=== PATIENT | female | born 1975 | race Caucasian/White ===

== ENCOUNTER 2017-08-20 12:46 | Inpatient (IN) ==
[2017-08-20] MEDS ORDERED: KETOROLAC 30 MG/1 ML VIAL IV STA (14:39)
[2017-08-20] MEDS ORDERED: SODIUM CHLORIDE 0.9% 1,000 ML IV STA (14:39)
[2017-08-20] MEDS ORDERED: ONDANSETRON ODT 4 MG TABLET PO STA (14:39)
[2017-08-20 15:58] LABS: Basophils # 0.1 10*3/uL (0.0-0.2); Basophils % 0.6 % (0.0-0.8); Eosinophils # 0.2 10*3/uL (0.0-0.87); Hemoglobin 11.4 GM/DL (12.0-16.0); Immature Granulocytes % 0.5 %; Immature Granulocytes Absolute 0.05 #; Lymphocytes # 1.3 10*3/uL (1.4-4.0); Lymphocytes % 12.9 % (21.3-54.2); Mean Corpuscular HGB Conc 32.6 GM/DL (32-36); Mean Corpuscular Hemoglobin 27 PG (27-34); Mean Corpuscular Volume 81.8 FL (87-102); Mean Platelet Volume 11.7 FL (9.6-12.0); Monocytes # 0.9 10*3/uL (0.11-0.8); Monocytes % 8.7 % (1.7-12.7); Neutrophils # 7.6 10*3/uL (1.4-7.4); Neutrophils % 75.3 % (38.7-73.9); Platelet Count 187 T/CUMM (130-400); Red Blood Count 4.28 MC/CUMM (3.8-5.5); Red Cell Distribution Width 13.6 % (9.3-17.3); White Blood Count 10.1 T/CUMM (4-12)
[2017-08-20] MEDS ORDERED: KETOROLAC 30 MG/1 ML VIAL ONE (16:12)
[2017-08-20] MEDS ORDERED: ONDANSETRON 4 MG/2 ML VIAL ONE (16:12)
[2017-08-20 16:31] LABS: Apearance,Urine CLOUDY (Clear); Bilirubin,Urine Negative (Negative); Blood, Urine Moderate mg/dL (Negative); Glucose,Urine (UA) Negative (Negative); Ketones,Urine Negative (Negative); Mucus,Urine Occasional /LPF (Occasional); Nitrite,Urine Positive (Negative); Protein,Urine 100 MG/DL; RBC,Urine 114 /HPF (0-4); Urine Color Amber (Yellow); Urine Specific Gravity 1.012 (1.001-1.035); WBC,Urine 1042 /HPF (0-6)
[2017-08-20 16:36] LABS: Platelet Estimate Normal
[2017-08-20] MEDS ORDERED: cefTRIAXone 1,000 MG in SODIUM CHLORIDE 0.9% 100 ML IV STA (16:39)
[2017-08-20] MEDS ORDERED: cefTRIAXone 1,000 MG VIAL ONE (16:48)
[2017-08-20 16:58] LABS: Albumin 3.7 G/DL (3.4-5.0); Bilirubin,Total 0.4 MG/DL (0.2-1.0); Calcium 8.6 MG/DL (8.5-10.1); Total Protein 6.8 G/DL (6.4-8.3)
[2017-08-20 16:59] LABS: Osmolality,Calculated 273.7 MOS/KG (273-304); Potassium 3.4 MMOL/L (3.5-5.1)
[2017-08-20] MEDS ORDERED: ZALEPLON 5 MG CAPSULE PO PRN (17:55)
[2017-08-20] MEDS ORDERED: ACETAMINOPHEN 325 MG TABLET PO PRN (17:55)
[2017-08-20] MEDS ORDERED: POTASSIUM CHLORIDE RIDER 10 MEQ in PREMIX 1 EACH IV PRN (18:49)
[2017-08-20] MEDS: SODIUM CHLORIDE 0.9% 1,000 ML IV SCH (20:43)
[2017-08-20] MEDS: DOCUSATE SODIUM 100 MG CAPSULE PO SCH (20:47)
[2017-08-20] MEDS: ENOXAPARIN 40 MG/0.4 ML SYRINGE SUBCUT SCH (20:47)
[2017-08-20] MEDS: traZODone 50 MG TABLET PO PRN (20:47)
[2017-08-20] MEDS: PIPERACILLIN/TAZOBACTAM 3,375 MG in SODIUM CHLORIDE 0.9% 100 ML IV SCH (20:48)
[2017-08-20] MEDS ORDERED: DEXTROSE 50% 25 GM/50 ML VIAL IV PRN (21:32)
[2017-08-20] MEDS ORDERED: GLUCAGON 1 MG VIAL IM PRN (21:32)
[2017-08-21] MEDS: ONDANSETRON 4 MG/2 ML VIAL IV PRN ×3 (04:21→20:59)
[2017-08-21] MEDS: PIPERACILLIN/TAZOBACTAM 3,375 MG in SODIUM CHLORIDE 0.9% 100 ML IV SCH ×3 (04:22→20:58)
[2017-08-21 04:35] LABS: Basophils % 0.5 % (0.0-0.8); Eosinophils # 0.3 10*3/uL (0.0-0.87); Eosinophils % 3.7 % (0.00-10.9); Hematocrit 32.4 VOL% (35.7-47.0); Hemoglobin 10.6 GM/DL (12.0-16.0); Immature Granulocytes % 0.4 %; Immature Granulocytes Absolute 0.03 #; Lymphocytes % 13.4 % (21.3-54.2); Mean Corpuscular HGB Conc 32.7 GM/DL (32-36); Mean Corpuscular Hemoglobin 27 PG (27-34); Mean Corpuscular Volume 82.2 FL (87-102); Mean Platelet Volume 11.2 FL (9.6-12.0); Monocytes # 0.7 10*3/uL (0.11-0.8); Monocytes % 9.1 % (1.7-12.7); Neutrophils # 5.4 10*3/uL (1.4-7.4); Neutrophils % 72.9 % (38.7-73.9); Platelet Count 209 T/CUMM (130-400); Red Blood Count 3.94 MC/CUMM (3.8-5.5); Red Cell Distribution Width 13.4 % (9.3-17.3); White Blood Count 7.3 T/CUMM (4-12)
[2017-08-21 05:06] LABS: Alanine Aminotransferase 19 U/L (13-56); Albumin 2.8 G/DL (3.4-5.0); Alkaline Phosphatase 95 U/L (45-117); Aspartate Amino Transferase 29 U/L (0-37); Bilirubin,Total < 0.39 MG/DL (0.2-1.0); Blood Urea Nitrogen 15 MG/DL (7-18); Calcium 8.1 MG/DL (8.5-10.1); Glucose 121 MG/DL (74-106); Osmolality,Calculated 282.3 MOS/KG (273-304); Potassium 3.6 MMOL/L (3.5-5.1); Sodium 141 MMOL/L (136-145); Total Protein 6.2 G/DL (6.4-8.3)
[2017-08-21] MEDS: SODIUM CHLORIDE 0.9% 1,000 ML IV SCH ×2 (05:18→11:30)
[2017-08-21 05:36] LABS: Risk Ratio 5.04; VLDL CHOLESTEROL 44.4 MG/DL
[2017-08-21] MEDS: PANTOPRAZOLE 40 MG TABLET PO SCH (09:18)
[2017-08-21] MEDS: DOCUSATE SODIUM 100 MG CAPSULE PO SCH ×2 (09:18→20:58)
[2017-08-21] MEDS: INSULIN REGULAR 100 UNIT/ML SUBCUT SCH ×4 (09:19→20:59)
[2017-08-21] MEDS: MORPHINE 4 MG/1 ML VIAL IV PRN (20:58)
[2017-08-21] MEDS: ENOXAPARIN 40 MG/0.4 ML SYRINGE SUBCUT SCH (20:58)
[2017-08-21] MEDS: traZODone 50 MG TABLET PO PRN (23:47)
[2017-08-22] MEDS: SODIUM CHLORIDE 0.9% 1,000 ML IV SCH ×3 (02:00→13:07)
[2017-08-22] MEDS: MORPHINE 4 MG/1 ML VIAL IV PRN ×2 (02:39→20:24)
[2017-08-22] MEDS: ONDANSETRON 4 MG/2 ML VIAL IV PRN ×4 (02:40→18:45)
[2017-08-22] MEDS: PIPERACILLIN/TAZOBACTAM 3,375 MG in SODIUM CHLORIDE 0.9% 100 ML IV SCH ×3 (04:37→20:26)
[2017-08-22 05:11] LABS: Basophils % 0.5 % (0.0-0.8); Eosinophils # 0.3 10*3/uL (0.0-0.87); Eosinophils % 4.7 % (0.00-10.9); Hematocrit 31.7 VOL% (35.7-47.0); Hemoglobin 10.5 GM/DL (12.0-16.0); Immature Granulocytes % 0.7 %; Immature Granulocytes Absolute 0.04 #; Lymphocytes # 1.9 10*3/uL (1.4-4.0); Lymphocytes % 31.9 % (21.3-54.2); Mean Corpuscular HGB Conc 33.1 GM/DL (32-36); Mean Corpuscular Hemoglobin 27 PG (27-34); Mean Corpuscular Volume 80.7 FL (87-102); Mean Platelet Volume 12.6 FL (9.6-12.0); Monocytes # 0.5 10*3/uL (0.11-0.8); Monocytes % 8.6 % (1.7-12.7); Neutrophils # 3.1 10*3/uL (1.4-7.4); Neutrophils % 53.6 % (38.7-73.9); Platelet Count 93 T/CUMM (130-400); Red Blood Count 3.93 MC/CUMM (3.8-5.5); Red Cell Distribution Width 13.6 % (9.3-17.3); White Blood Count 5.8 T/CUMM (4-12)
[2017-08-22 05:35] LABS: Calcium 8.1 MG/DL (8.5-10.1); Osmolality,Calculated 286.8 MOS/KG (273-304); Potassium 3.8 MMOL/L (3.5-5.1)
[2017-08-22] MEDS: INSULIN REGULAR 100 UNIT/ML SUBCUT SCH ×4 (08:29→23:04)
[2017-08-22] MEDS: PANTOPRAZOLE 40 MG TABLET PO SCH (08:29)
[2017-08-22] MEDS: DOCUSATE SODIUM 100 MG CAPSULE PO SCH ×2 (08:30→20:26)
[2017-08-22] MEDS: ENOXAPARIN 40 MG/0.4 ML SYRINGE SUBCUT SCH (20:26)
[2017-08-23] MEDS: SODIUM CHLORIDE 0.9% 1,000 ML IV SCH ×2 (04:44→10:52)
[2017-08-23] MEDS: PIPERACILLIN/TAZOBACTAM 3,375 MG in SODIUM CHLORIDE 0.9% 100 ML IV SCH (04:44)
[2017-08-23] MEDS: INSULIN REGULAR 100 UNIT/ML SUBCUT SCH ×2 (08:55→12:37)
[2017-08-23] MEDS: DOCUSATE SODIUM 100 MG CAPSULE PO SCH (08:56)
[2017-08-23] MEDS: PANTOPRAZOLE 40 MG TABLET PO SCH (08:56)
[2017-08-23] MEDS: ONDANSETRON 4 MG/2 ML VIAL IV PRN (09:21)
[2017-08-23] MEDS: MORPHINE 4 MG/1 ML VIAL IV PRN (11:22)
[2017-08-23 12:01] VITALS: BP 144/88
== END 2017-08-23 12:38 | disposition home or self-care (01) | DRG 690 ==
LOC: N.ED 12:46 → SUATTDRO 17:53 → N.EDINP 17:53 → N.2E 18:25
PROVIDERS: ADMIT Internal Medicine; ATTEND Family Medicine

== ENCOUNTER 2017-09-09 09:49 | Inpatient (IN) ==
[2017-09-09] MEDS ORDERED: SODIUM CHLORIDE 0.9% 1,000 ML IV STA (10:13)
[2017-09-09] MEDS ORDERED: ONDANSETRON 4 MG/2 ML VIAL IV STA (10:13)
[2017-09-09 11:16] LABS: Apearance,Urine Slightly Hazy (Clear); Bacteria,Urine Occasional /HPF (Few); Bilirubin,Urine Negative (Negative); Blood, Urine Negative (Negative); Glucose,Urine (UA) Negative (Negative); Granular Casts,Urine 2 /LPF (0-1); Hyaline Casts,Urine 16 /LPF (0-3); Ketones,Urine Negative (Negative); Mucus,Urine Occasional /LPF (Occasional); Nitrite,Urine Negative (Negative); Protein,Urine 30 MG/DL; RBC,Urine <1 /HPF (0-4); Squamous Epithelial Cell,Urine Few /HPF (0-10); Urine Color Yellow (Yellow); Urine Specific Gravity 1.028 (1.001-1.035); Urine Urobilinogen < 2.0 EU/DL (0.2-1.0); WBC,Urine 29 /HPF (0-6)
[2017-09-09 11:22] LABS: Basophils % 0.4 % (0.0-0.8); Eosinophils # 0.1 10*3/uL (0.0-0.87); Eosinophils % 0.9 % (0.00-10.9); Hematocrit 42.6 VOL% (35.7-47.0); Hemoglobin 14.2 GM/DL (12.0-16.0); Immature Granulocytes % 0.4 %; Immature Granulocytes Absolute 0.04 #; Lymphocytes # 2.1 10*3/uL (1.4-4.0); Lymphocytes % 20.7 % (21.3-54.2); Mean Corpuscular HGB Conc 33.3 GM/DL (32-36); Mean Corpuscular Hemoglobin 26 PG (27-34); Mean Platelet Volume 11.4 FL (9.6-12.0); Monocytes # 0.8 10*3/uL (0.11-0.8); Monocytes % 8.5 % (1.7-12.7); Neutrophils # 6.9 10*3/uL (1.4-7.4); Neutrophils % 69.1 % (38.7-73.9); Platelet Count 342 T/CUMM (130-400); Red Blood Count 5.46 MC/CUMM (3.8-5.5); Red Cell Distribution Width 14.2 % (9.3-17.3); White Blood Count 9.9 T/CUMM (4-12)
[2017-09-09 11:45] LABS: Alanine Aminotransferase 15 U/L (13-56); Albumin 2.8 G/DL (3.4-5.0); Alkaline Phosphatase 83 U/L (45-117); Aspartate Amino Transferase 23 U/L (0-37); Bilirubin,Total < 0.39 MG/DL (0.2-1.0); Blood Urea Nitrogen 24 MG/DL (7-18); Calcium 8.3 MG/DL (8.5-10.1); Glucose 124 MG/DL (74-106); Osmolality,Calculated 279.7 MOS/KG (273-304); Sodium 138 MMOL/L (136-145); Total Protein 6.1 G/DL (6.4-8.3)
[2017-09-09 11:47] LABS: Potassium 2.4 MMOL/L (3.5-5.1)
[2017-09-09] MEDS ORDERED: POTASSIUM CHLORIDE RIDER 100 ML IV ONE (11:52)
[2017-09-09] MEDS: POTASSIUM CHLORIDE RIDER 10 MEQ in PREMIX 1 EACH IV SCH ×2 (12:04→14:15)
[2017-09-09] MEDS ORDERED: MORPHINE 4 MG/1 ML VIAL IM STA (12:15)
[2017-09-09] MEDS ORDERED: MORPHINE 4 MG/1 ML VIAL IV STA (12:25)
[2017-09-09] MEDS ORDERED: ACETAMINOPHEN 325 MG TABLET PO PRN (15:01)
[2017-09-09] MEDS ORDERED: POTASSIUM CHLORIDE 20 MEQ/15 ML UDCUP PER TUBE PRN (15:25)
[2017-09-09] MEDS ORDERED: PANTOPRAZOLE 40 MG TABLET PO SCH (15:30)
[2017-09-09] MEDS ORDERED: GLUCAGON 1 MG VIAL IM PRN (16:16)
[2017-09-09] MEDS ORDERED: DEXTROSE 50% 25 GM/50 ML VIAL IV PRN (16:16)
[2017-09-09] MEDS: POTASSIUM CHLORIDE RIDER 10 MEQ in PREMIX 1 EACH IV PRN ×3 (16:20→22:50)
[2017-09-09] MEDS: ONDANSETRON 4 MG/2 ML VIAL IV PRN ×2 (16:21→20:23)
[2017-09-09] MEDS: INSULIN LISPRO 100 UNIT/ML SUBCUT SCH ×2 (16:53→21:08)
[2017-09-09] MEDS: MORPHINE 4 MG/1 ML VIAL IV PRN ×2 (18:34→22:39)
[2017-09-09] MEDS: SODIUM CHLORIDE 0.9% 1,000 ML IV SCH (20:23)
[2017-09-10 05:09] LABS: Basophils % 0.5 % (0.0-0.8); Eosinophils # 0.3 10*3/uL (0.0-0.87); Eosinophils % 3.4 % (0.00-10.9); Hematocrit 36.1 VOL% (35.7-47.0); Hemoglobin 11.9 GM/DL (12.0-16.0); Immature Granulocytes % 0.6 %; Immature Granulocytes Absolute 0.05 #; Lymphocytes # 3.2 10*3/uL (1.4-4.0); Lymphocytes % 37.5 % (21.3-54.2); Mean Corpuscular Hemoglobin 26 PG (27-34); Mean Corpuscular Volume 80.2 FL (87-102); Mean Platelet Volume 12.2 FL (9.6-12.0); Monocytes # 0.8 10*3/uL (0.11-0.8); Monocytes % 9.8 % (1.7-12.7); Neutrophils # 4.1 10*3/uL (1.4-7.4); Neutrophils % 48.2 % (38.7-73.9); Platelet Count 282 T/CUMM (130-400); Red Cell Distribution Width 14.1 % (9.3-17.3); White Blood Count 8.6 T/CUMM (4-12)
[2017-09-10 05:27] LABS: Calcium 7.6 MG/DL (8.5-10.1); Osmolality,Calculated 282.3 MOS/KG (273-304); Risk Ratio 5.9; Thyroid Stimulating Hormone 2.07 uIU/ml (0.358-3.74); VLDL CHOLESTEROL 42.2 MG/DL
[2017-09-10] MEDS: SODIUM CHLORIDE 0.9% 1,000 ML IV SCH ×4 (06:19→23:28)
[2017-09-10] MEDS: MORPHINE 4 MG/1 ML VIAL IV PRN ×4 (06:25→20:32)
[2017-09-10] MEDS: ONDANSETRON 4 MG/2 ML VIAL IV PRN ×4 (06:26→20:33)
[2017-09-10] MEDS: INSULIN LISPRO 100 UNIT/ML SUBCUT SCH ×4 (07:44→20:31)
[2017-09-10] MEDS: methylPREDNISolone SOD SUC 40 MG/1 ML VIAL IV SCH ×3 (09:08→20:34)
[2017-09-10] MEDS: PANTOPRAZOLE 40 MG TABLET PO SCH ×2 (09:08→20:35)
[2017-09-10] MEDS: POTASSIUM CHLORIDE 20 MEQ TABLET PO PRN ×4 (09:08→14:32)
[2017-09-10] MEDS: MESALAMINE 250 MG CAPSULE PO SCH ×4 (09:08→20:35)
[2017-09-11] MEDS: methylPREDNISolone SOD SUC 40 MG/1 ML VIAL IV SCH ×4 (01:02→21:40)
[2017-09-11] MEDS: MORPHINE 4 MG/1 ML VIAL IV PRN ×5 (01:03→23:15)
[2017-09-11] MEDS: ONDANSETRON 4 MG/2 ML VIAL IV PRN ×6 (01:03→22:50)
[2017-09-11 05:58] LABS: Basophils % 0.1 % (0.0-0.8); Hematocrit 34.2 VOL% (35.7-47.0); Hemoglobin 11.1 GM/DL (12.0-16.0); Immature Granulocytes % 0.6 %; Immature Granulocytes Absolute 0.08 #; Lymphocytes # 1.2 10*3/uL (1.4-4.0); Lymphocytes % 8.1 % (21.3-54.2); Mean Corpuscular HGB Conc 32.5 GM/DL (32-36); Mean Corpuscular Hemoglobin 26 PG (27-34); Mean Corpuscular Volume 79.9 FL (87-102); Mean Platelet Volume 12.2 FL (9.6-12.0); Monocytes # 0.2 10*3/uL (0.11-0.8); Monocytes % 1.3 % (1.7-12.7); Neutrophils % 89.9 % (38.7-73.9); Platelet Count 247 T/CUMM (130-400); Red Blood Count 4.28 MC/CUMM (3.8-5.5); Red Cell Distribution Width 14.1 % (9.3-17.3); White Blood Count 14.4 T/CUMM (4-12)
[2017-09-11 06:27] LABS: Calcium 8.2 MG/DL (8.5-10.1); Osmolality,Calculated 288.1 MOS/KG (273-304); Potassium 4.2 MMOL/L (3.5-5.1)
[2017-09-11] MEDS: INSULIN LISPRO 100 UNIT/ML SUBCUT SCH ×4 (08:33→21:40)
[2017-09-11] MEDS: SODIUM CHLORIDE 0.9% 1,000 ML IV SCH ×3 (08:34→16:36)
[2017-09-11] MEDS: MESALAMINE 250 MG CAPSULE PO SCH ×4 (09:31→21:40)
[2017-09-11] MEDS: PANTOPRAZOLE 40 MG TABLET PO SCH ×2 (09:31→21:40)
[2017-09-12] MEDS: SODIUM CHLORIDE 0.9% 1,000 ML IV SCH ×3 (00:56→18:38)
[2017-09-12] MEDS: methylPREDNISolone SOD SUC 40 MG/1 ML VIAL IV SCH ×4 (00:57→21:35)
[2017-09-12 06:38] LABS: Basophils % 0.2 % (0.0-0.8); Eosinophils % 0.1 % (0.00-10.9); Hematocrit 34.2 VOL% (35.7-47.0); Hemoglobin 10.7 GM/DL (12.0-16.0); Immature Granulocytes % 0.9 %; Immature Granulocytes Absolute 0.17 #; Lymphocytes # 1.9 10*3/uL (1.4-4.0); Mean Corpuscular HGB Conc 31.3 GM/DL (32-36); Mean Corpuscular Hemoglobin 26 PG (27-34); Mean Corpuscular Volume 83.2 FL (87-102); Mean Platelet Volume 12.6 FL (9.6-12.0); Monocytes # 0.5 10*3/uL (0.11-0.8); Monocytes % 2.6 % (1.7-12.7); Neutrophils # 16.1 10*3/uL (1.4-7.4); Neutrophils % 86.2 % (38.7-73.9); Platelet Count 314 T/CUMM (130-400); Red Blood Count 4.11 MC/CUMM (3.8-5.5); Red Cell Distribution Width 14.5 % (9.3-17.3); White Blood Count 18.7 T/CUMM (4-12)
[2017-09-12 07:05] LABS: Calcium 7.5 MG/DL (8.5-10.1); Osmolality,Calculated 287.8 MOS/KG (273-304); Potassium 3.9 MMOL/L (3.5-5.1)
[2017-09-12] MEDS: ONDANSETRON 4 MG/2 ML VIAL IV PRN ×3 (08:39→16:04)
[2017-09-12] MEDS: PANTOPRAZOLE 40 MG TABLET PO SCH ×2 (08:46→21:35)
[2017-09-12] MEDS: BISACODYL 5 MG TABLET PO SCH ×2 (08:46→14:30)
[2017-09-12] MEDS: MESALAMINE 250 MG CAPSULE PO SCH ×4 (08:46→21:35)
[2017-09-12] MEDS: INSULIN LISPRO 100 UNIT/ML SUBCUT SCH ×4 (09:56→22:02)
[2017-09-12] MEDS: MORPHINE 4 MG/1 ML VIAL IV PRN (16:04)
[2017-09-12] MEDS ORDERED: POLYETHYLENE GLYCOL POWDER 255 GM BOTTLE PO ONE (18:00)
[2017-09-12] MEDS ORDERED: MAGNESIUM CITRATE 300 ML BOTTLE PO ONE (21:00)
[2017-09-13] MEDS: BISACODYL 5 MG TABLET PO SCH (00:27)
[2017-09-13] MEDS: SODIUM CHLORIDE 0.9% 1,000 ML IV SCH ×4 (02:44→23:05)
[2017-09-13] MEDS: methylPREDNISolone SOD SUC 40 MG/1 ML VIAL IV SCH ×2 (02:45→15:17)
[2017-09-13] MEDS ORDERED: MIDAZOLAM 2 MG/2 ML VIAL ONE (07:36)
[2017-09-13] MEDS ORDERED: ONDANSETRON 4 MG/2 ML VIAL ONE (07:37)
[2017-09-13] MEDS ORDERED: PROPOFOL 200 MG/20 ML VIAL IV ONE (09:00)
[2017-09-13] MEDS ORDERED: LIDOCAINE 2% 5 ML VIAL ONE (09:00)
[2017-09-13] MEDS: INSULIN LISPRO 100 UNIT/ML SUBCUT SCH ×4 (10:24→20:59)
[2017-09-13] MEDS: PANTOPRAZOLE 40 MG TABLET PO SCH ×2 (10:25→20:59)
[2017-09-13] MEDS: predniSONE 20 MG TABLET PO SCH (10:25)
[2017-09-13] MEDS: ONDANSETRON 4 MG/2 ML VIAL IV PRN ×4 (10:27→23:58)
[2017-09-13] MEDS: MESALAMINE 250 MG CAPSULE PO SCH ×4 (10:32→20:59)
[2017-09-13] MEDS: MORPHINE 4 MG/1 ML VIAL IV PRN ×2 (10:39→18:02)
[2017-09-13] MEDS ORDERED: LEVOFLOXACIN INJ 750 MG in PREMIX 1 EACH IV SCH (17:00)
[2017-09-14] MEDS: MORPHINE 4 MG/1 ML VIAL IV PRN ×2 (00:02→06:01)
[2017-09-14] MEDS: ONDANSETRON 4 MG/2 ML VIAL IV PRN (05:58)
[2017-09-14] MEDS: SODIUM CHLORIDE 0.9% 1,000 ML IV SCH ×2 (06:50→13:45)
[2017-09-14 07:37] LABS: Basophils % 0.1 % (0.0-0.8); Eosinophils % 0.2 % (0.00-10.9); Hematocrit 34.2 VOL% (35.7-47.0); Hemoglobin 11.1 GM/DL (12.0-16.0); Immature Granulocytes % 2.6 %; Immature Granulocytes Absolute 0.28 #; Lymphocytes # 2.2 10*3/uL (1.4-4.0); Lymphocytes % 20.3 % (21.3-54.2); Mean Corpuscular HGB Conc 32.5 GM/DL (32-36); Mean Corpuscular Hemoglobin 26 PG (27-34); Mean Corpuscular Volume 79.7 FL (87-102); Mean Platelet Volume 11.6 FL (9.6-12.0); Monocytes # 0.4 10*3/uL (0.11-0.8); Monocytes % 3.5 % (1.7-12.7); Neutrophils % 73.3 % (38.7-73.9); Platelet Count 268 T/CUMM (130-400); Red Blood Count 4.29 MC/CUMM (3.8-5.5); Red Cell Distribution Width 14.4 % (9.3-17.3); White Blood Count 10.9 T/CUMM (4-12)
[2017-09-14] MEDS: INSULIN LISPRO 100 UNIT/ML SUBCUT SCH ×2 (09:06→12:52)
[2017-09-14] MEDS: MESALAMINE 250 MG CAPSULE PO SCH ×2 (09:07→13:17)
[2017-09-14] MEDS: predniSONE 20 MG TABLET PO SCH (09:07)
[2017-09-14] MEDS: PANTOPRAZOLE 40 MG TABLET PO SCH (09:37)
[2017-09-14 12:16] VITALS: BP 188/109
== END 2017-09-14 14:08 | disposition home or self-care (01) | DRG 386 ==
LOC: N.ED 09:49 → N.EDINP 12:07 → N.2E 12:56
PROVIDERS: ADMIT Internal Medicine; ATTEND Internal Medicine
PROC: COLONBX (2017-09-13 08:35)

== ENCOUNTER 2018-03-17 16:13 | Inpatient (IN) ==
[2018-03-17] MEDS ORDERED: PANTOPRAZOLE 40 MG VIAL IV STA (17:07)
[2018-03-17] MEDS ORDERED: SODIUM CHLORIDE 0.9% 1,000 ML IV STA (17:07)
[2018-03-17] MEDS ORDERED: ONDANSETRON 4 MG/2 ML VIAL IV STA (17:07)
[2018-03-17] MEDS ORDERED: KETOROLAC 30 MG/1 ML VIAL IV STA (17:07)
[2018-03-17 18:17] LABS: Basophils # 0.1 10*3/uL (0.0-0.2); Basophils % 0.8 % (0.0-0.8); Eosinophils # 0.1 10*3/uL (0.0-0.87); Eosinophils % 1.4 % (0.00-10.9); Hematocrit 35.3 VOL% (35.7-47.0); Hemoglobin 11.5 GM/DL (12.0-16.0); Immature Granulocytes % 0.6 %; Immature Granulocytes Absolute 0.05 #; Lymphocytes # 2.1 10*3/uL (1.4-4.0); Lymphocytes % 23.5 % (21.3-54.2); Mean Corpuscular HGB Conc 32.6 GM/DL (32-36); Mean Corpuscular Hemoglobin 25 PG (27-34); Mean Corpuscular Volume 75.8 FL (87-102); Mean Platelet Volume 10.2 FL (9.6-12.0); Monocytes # 0.8 10*3/uL (0.11-0.8); Monocytes % 8.7 % (1.7-12.7); Neutrophils # 5.9 10*3/uL (1.4-7.4); Platelet Count 269 T/CUMM (130-400); Red Blood Count 4.66 MC/CUMM (3.8-5.5); Red Cell Distribution Width 13.2 % (9.3-17.3); White Blood Count 9.1 T/CUMM (4-12)
[2018-03-17 18:54] LABS: Hypochromasia 1+; Microcytosis 1+; Platelet Estimate Adequate
[2018-03-17 19:02] LABS: Apearance,Urine CLEAR (Clear); Bacteria,Urine Occasional /HPF (Few); Bilirubin,Urine Negative (Negative); Blood, Urine Negative (Negative); Glucose,Urine (UA) Negative (Negative); Ketones,Urine Negative (Negative); Mucus,Urine Occasional /LPF (Occasional); Nitrite,Urine Negative (Negative); Protein,Urine Negative; RBC,Urine 1 /HPF (0-4); Squamous Epithelial Cell,Urine Occasional /HPF (0-10); Urine Color Yellow (Yellow); Urine Specific Gravity 1.017 (1.001-1.035); Urine Urobilinogen < 2.0 EU/DL (0.2-1.0); WBC,Urine 4 /HPF (0-6)
[2018-03-17 19:03] LABS: Alanine Aminotransferase 14 U/L (13-56); Albumin 3.5 G/DL (3.4-5.0); Alkaline Phosphatase 90 U/L (45-117); Aspartate Amino Transferase 21 U/L (0-37); Bilirubin,Total < 0.39 MG/DL (0.2-1.0); Blood Urea Nitrogen 17 MG/DL (7-18); Calcium 8.6 MG/DL (8.5-10.1); Glucose 84 MG/DL (74-106); Osmolality,Calculated 273.8 MOS/KG (273-304); Potassium 3.3 MMOL/L (3.5-5.1); Sodium 137 MMOL/L (136-145)
[2018-03-17] MEDS ORDERED: POTASSIUM CHLORIDE 20 MEQ TABLET PO STA (19:23)
[2018-03-17] MEDS ORDERED: MAGNESIUM SULF RIDER 2 GM in PREMIX 1 EACH IV STA (19:23)
[2018-03-17 19:31] LABS: Lactic Acid 1.4 MMOL/L (0.4-2.0)
[2018-03-17 19:43] LABS: Barbiturates Screen,Urine Negative (Negative); Benzodiazepines Screen,Urine Negative (Negative); Cannabinoid Screen,Urine Negative (Negative); Opiate Screen,Urine Negative (Negative); Phencyclidine Screen,Urine Negative (Negative)
[2018-03-17] MEDS ORDERED: ACETAMINOPHEN 325 MG TABLET PO PRN (20:07)
[2018-03-17] MEDS ORDERED: POTASSIUM CHLORIDE 10 MEQ TABLET PO ONE (20:11)
[2018-03-17] MEDS ORDERED: NON-FORMULARY MEDICATION (Trazodone Hcl [Trazodone Hcl] 200 MG) PO SCH (21:00)
[2018-03-17] MEDS: SODIUM CHLORIDE 0.9% 1,000 ML IV SCH (21:21)
[2018-03-17] MEDS ORDERED: INFLUENZA VIRUS VACCINE 0.5 ML SYRINGE IM ONE (21:21)
[2018-03-17] MEDS ORDERED: cefTRIAXone 1,000 MG in SYRINGE 1 EACH IV SCH (21:30)
[2018-03-17] MEDS ORDERED: metroNIDAZOLE 500 MG TABLET PO SCH (21:30)
[2018-03-17] MEDS: ESCITALOPRAM 10 MG TABLET PO SCH (21:38)
[2018-03-17] MEDS: CIPROFLOXACIN 500 MG TABLET PO SCH (21:38)
[2018-03-17] MEDS: GABAPENTIN 300 MG CAPSULE PO SCH (21:38)
[2018-03-17] MEDS: ONDANSETRON 4 MG/2 ML VIAL IV PRN (21:49)
[2018-03-17] MEDS: MORPHINE 4 MG/1 ML VIAL IV PRN (21:50)
[2018-03-18] MEDS: ONDANSETRON 4 MG/2 ML VIAL IV PRN ×4 (03:51→23:32)
[2018-03-18] MEDS: MORPHINE 4 MG/1 ML VIAL IV PRN ×5 (03:52→23:32)
[2018-03-18 04:24] LABS: Basophils # 0.1 10*3/uL (0.0-0.2); Basophils % 0.8 % (0.0-0.8); Eosinophils # 0.1 10*3/uL (0.0-0.87); Hematocrit 29.5 VOL% (35.7-47.0); Hemoglobin 9.3 GM/DL (12.0-16.0); Immature Granulocytes % 0.6 %; Immature Granulocytes Absolute 0.04 #; Lymphocytes # 1.9 10*3/uL (1.4-4.0); Lymphocytes % 28.7 % (21.3-54.2); Mean Corpuscular HGB Conc 31.5 GM/DL (32-36); Mean Corpuscular Hemoglobin 24 PG (27-34); Mean Corpuscular Volume 77.2 FL (87-102); Mean Platelet Volume 10.3 FL (9.6-12.0); Monocytes # 0.5 10*3/uL (0.11-0.8); Monocytes % 7.8 % (1.7-12.7); Neutrophils # 3.9 10*3/uL (1.4-7.4); Neutrophils % 60.1 % (38.7-73.9); Platelet Count 268 T/CUMM (130-400); Red Blood Count 3.82 MC/CUMM (3.8-5.5); Red Cell Distribution Width 13.2 % (9.3-17.3); White Blood Count 6.5 T/CUMM (4-12)
[2018-03-18] MEDS: CIPROFLOXACIN 500 MG TABLET PO SCH ×2 (09:06→20:39)
[2018-03-18] MEDS: metroNIDAZOLE 500 MG TABLET PO SCH ×3 (09:06→20:39)
[2018-03-18] MEDS: buPROPion SR 100 MG TABLET PO SCH (09:06)
[2018-03-18] MEDS: GABAPENTIN 300 MG CAPSULE PO SCH ×3 (09:06→20:39)
[2018-03-18] MEDS: predniSONE 20 MG TABLET PO SCH (09:07)
[2018-03-18] MEDS: MESALAMINE 250 MG CAPSULE PO SCH ×4 (10:22→20:40)
[2018-03-18] MEDS: SODIUM CHLORIDE 0.9% 1,000 ML IV SCH ×2 (13:34→21:27)
[2018-03-18] MEDS: traZODone 50 MG TABLET PO SCH (20:39)
[2018-03-18] MEDS: ESCITALOPRAM 10 MG TABLET PO SCH (20:39)
[2018-03-19] MEDS: MORPHINE 4 MG/1 ML VIAL IV PRN ×4 (04:11→19:42)
[2018-03-19] MEDS: ONDANSETRON 4 MG/2 ML VIAL IV PRN ×4 (04:15→19:43)
[2018-03-19 05:54] LABS: Basophils % 0.5 % (0.0-0.8); Eosinophils # 0.1 10*3/uL (0.0-0.87); Hemoglobin 8.9 GM/DL (12.0-16.0); Immature Granulocytes % 0.5 %; Immature Granulocytes Absolute 0.04 #; Lymphocytes # 1.6 10*3/uL (1.4-4.0); Lymphocytes % 20.4 % (21.3-54.2); Mean Corpuscular HGB Conc 30.7 GM/DL (32-36); Mean Corpuscular Hemoglobin 24 PG (27-34); Mean Corpuscular Volume 78.6 FL (87-102); Mean Platelet Volume 10.8 FL (9.6-12.0); Monocytes # 0.4 10*3/uL (0.11-0.8); Monocytes % 5.2 % (1.7-12.7); Neutrophils # 5.7 10*3/uL (1.4-7.4); Neutrophils % 72.4 % (38.7-73.9); Platelet Count 265 T/CUMM (130-400); Red Blood Count 3.69 MC/CUMM (3.8-5.5); Red Cell Distribution Width 13.3 % (9.3-17.3); White Blood Count 7.8 T/CUMM (4-12)
[2018-03-19 06:18] LABS: Calcium 7.6 MG/DL (8.5-10.1); Osmolality,Calculated 289.6 MOS/KG (273-304); Potassium 3.8 MMOL/L (3.5-5.1)
[2018-03-19] MEDS: metroNIDAZOLE 500 MG TABLET PO SCH ×3 (09:40→20:53)
[2018-03-19] MEDS: CIPROFLOXACIN 500 MG TABLET PO SCH ×2 (09:41→20:53)
[2018-03-19] MEDS: GABAPENTIN 300 MG CAPSULE PO SCH ×3 (09:41→20:53)
[2018-03-19] MEDS: buPROPion SR 100 MG TABLET PO SCH (09:41)
[2018-03-19] MEDS: predniSONE 20 MG TABLET PO SCH (09:41)
[2018-03-19] MEDS: MESALAMINE 250 MG CAPSULE PO SCH ×4 (09:42→20:51)
[2018-03-19] MEDS: SODIUM CHLORIDE 0.9% 1,000 ML IV SCH ×2 (14:44→22:48)
[2018-03-19] MEDS: ESCITALOPRAM 10 MG TABLET PO SCH (20:53)
[2018-03-19] MEDS: traZODone 50 MG TABLET PO SCH (20:53)
[2018-03-20] MEDS: MORPHINE 4 MG/1 ML VIAL IV PRN ×6 (00:06→22:40)
[2018-03-20] MEDS: ONDANSETRON 4 MG/2 ML VIAL IV PRN ×5 (00:07→19:12)
[2018-03-20] MEDS: SODIUM CHLORIDE 0.9% 1,000 ML IV SCH ×3 (05:18→21:07)
[2018-03-20] MEDS: predniSONE 20 MG TABLET PO SCH (09:50)
[2018-03-20] MEDS: CIPROFLOXACIN 500 MG TABLET PO SCH ×2 (09:50→22:42)
[2018-03-20] MEDS: buPROPion SR 100 MG TABLET PO SCH (09:50)
[2018-03-20] MEDS: MESALAMINE 250 MG CAPSULE PO SCH ×4 (09:50→22:41)
[2018-03-20] MEDS: GABAPENTIN 300 MG CAPSULE PO SCH ×3 (09:50→22:42)
[2018-03-20] MEDS: metroNIDAZOLE 500 MG TABLET PO SCH ×3 (09:50→22:41)
[2018-03-20] MEDS ORDERED: POLYETHYLENE GLYCOL POWDER 255 GM BOTTLE PO ONE (17:01)
[2018-03-20] MEDS: traZODone 50 MG TABLET PO SCH (22:41)
[2018-03-20] MEDS: ESCITALOPRAM 10 MG TABLET PO SCH (22:42)
[2018-03-21] MEDS ORDERED: POLYETHYLENE GLYCOL POWDER 255 GM BOTTLE PO ONE (03:00)
[2018-03-21] MEDS: MORPHINE 4 MG/1 ML VIAL IV PRN ×5 (03:21→21:56)
[2018-03-21] MEDS: ONDANSETRON 4 MG/2 ML VIAL IV PRN ×5 (03:21→21:56)
[2018-03-21] MEDS: SODIUM CHLORIDE 0.9% 1,000 ML IV SCH (05:14)
[2018-03-21 05:42] LABS: Basophils % 0.3 % (0.0-0.8); Hematocrit 30.4 VOL% (35.7-47.0); Hemoglobin 9.5 GM/DL (12.0-16.0); Immature Granulocytes Absolute 0.47 #; Lymphocytes # 1.4 10*3/uL (1.4-4.0); Lymphocytes % 12.3 % (21.3-54.2); Mean Corpuscular HGB Conc 31.3 GM/DL (32-36); Mean Corpuscular Hemoglobin 25 PG (27-34); Mean Corpuscular Volume 78.4 FL (87-102); Mean Platelet Volume 10.5 FL (9.6-12.0); Monocytes # 0.5 10*3/uL (0.11-0.8); Monocytes % 4.6 % (1.7-12.7); Neutrophils # 9.2 10*3/uL (1.4-7.4); Neutrophils % 78.8 % (38.7-73.9); Platelet Count 313 T/CUMM (130-400); Red Blood Count 3.88 MC/CUMM (3.8-5.5); Red Cell Distribution Width 13.5 % (9.3-17.3); White Blood Count 11.6 T/CUMM (4-12)
[2018-03-21 06:00] LABS: Alanine Aminotransferase 12 U/L (13-56); Albumin 2.7 G/DL (3.4-5.0); Alkaline Phosphatase 69 U/L (45-117); Aspartate Amino Transferase 13 U/L (0-37); Bilirubin,Total < 0.39 MG/DL (0.2-1.0); Blood Urea Nitrogen 11 MG/DL (7-18); Calcium 7.4 MG/DL (8.5-10.1); Glucose 199 MG/DL (74-106); Osmolality,Calculated 290.8 MOS/KG (273-304); Potassium 3.3 MMOL/L (3.5-5.1); Sodium 144 MMOL/L (136-145)
[2018-03-21 06:27] LABS: Ferritin 117.4 ng/ml (8-252)
[2018-03-21] MEDS ORDERED: POTASSIUM CHLORIDE 20 MEQ TABLET PO PRN (07:14)
[2018-03-21] MEDS: predniSONE 20 MG TABLET PO SCH ×2 (08:33→09:57)
[2018-03-21] MEDS: GABAPENTIN 300 MG CAPSULE PO SCH ×4 (08:33→21:55)
[2018-03-21] MEDS: MESALAMINE 250 MG CAPSULE PO SCH ×5 (08:33→22:14)
[2018-03-21] MEDS: metroNIDAZOLE 500 MG TABLET PO SCH ×4 (08:33→21:55)
[2018-03-21] MEDS: buPROPion SR 100 MG TABLET PO SCH ×2 (08:33→09:57)
[2018-03-21] MEDS: CIPROFLOXACIN 500 MG TABLET PO SCH ×3 (08:34→21:55)
[2018-03-21] MEDS ORDERED: POTASSIUM CHLORIDE RIDER 10 MEQ in PREMIX 1 EACH IV PRN (08:54)
[2018-03-21] MEDS ORDERED: MAGNESIUM SULF RIDER 2 GM in PREMIX 1 EACH IV ONE ×2 (09:00→14:00)
[2018-03-21] MEDS: POTASSIUM CHLORIDE RIDER 20 MEQ in PREMIX 1 EACH IV PRN ×3 (10:25→22:15)
[2018-03-21] MEDS ORDERED: MAGNESIUM SULF RIDER 4 GM in PREMIX 1 EACH IV PRN (12:15)
[2018-03-21] MEDS ORDERED: MAGNESIUM SULF RIDER 2 GM in PREMIX 1 EACH IV PRN (12:15)
[2018-03-21] MEDS ORDERED: SODIUM CHLORIDE 0.9% 1,000 ML IV SCH (12:30)
[2018-03-21] MEDS ORDERED: CYANOCOBALAMIN 1000 MCG/1 ML VIAL IM ONE (13:30)
[2018-03-21] MEDS: traZODone 50 MG TABLET PO SCH (21:55)
[2018-03-21] MEDS: ESCITALOPRAM 10 MG TABLET PO SCH (21:56)
[2018-03-21] MEDS: MAGNESIUM CHLORIDE 64 MG TABLET PO SCH (21:56)
[2018-03-21] MEDS: MULTIVITAMIN (CENTRUM) TABLET PO SCH (21:56)
[2018-03-21] MEDS: POTASSIUM CHLORIDE 20 MEQ/15 ML UDCUP PO SCH (21:57)
[2018-03-22 01:34] LABS: Basophils % 0.2 % (0.0-0.8); Eosinophils % 0.1 % (0.00-10.9); Hemoglobin 9.8 GM/DL (12.0-16.0); Immature Granulocytes % 3.5 %; Immature Granulocytes Absolute 0.45 #; Lymphocytes # 1.7 10*3/uL (1.4-4.0); Lymphocytes % 13.4 % (21.3-54.2); Mean Corpuscular HGB Conc 31.6 GM/DL (32-36); Mean Corpuscular Hemoglobin 24 PG (27-34); Mean Corpuscular Volume 77.3 FL (87-102); Monocytes # 0.4 10*3/uL (0.11-0.8); Neutrophils # 10.3 10*3/uL (1.4-7.4); Neutrophils % 79.8 % (38.7-73.9); Platelet Count 330 T/CUMM (130-400); Red Blood Count 4.01 MC/CUMM (3.8-5.5); Red Cell Distribution Width 13.6 % (9.3-17.3); White Blood Count 12.9 T/CUMM (4-12)
[2018-03-22 02:05] LABS: Alanine Aminotransferase 13 U/L (13-56); Albumin 2.7 G/DL (3.4-5.0); Alkaline Phosphatase 73 U/L (45-117); Aspartate Amino Transferase 14 U/L (0-37); Bilirubin,Total < 0.39 MG/DL (0.2-1.0); Blood Urea Nitrogen 12 MG/DL (7-18); Calcium 7.8 MG/DL (8.5-10.1); Glucose 200 MG/DL (74-106); Potassium 3.8 MMOL/L (3.5-5.1); Sodium 143 MMOL/L (136-145); Total Protein 6.1 G/DL (6.4-8.3)
[2018-03-22] MEDS: ONDANSETRON 4 MG/2 ML VIAL IV PRN ×2 (02:10→08:05)
[2018-03-22] MEDS: MORPHINE 4 MG/1 ML VIAL IV PRN ×2 (02:10→08:04)
[2018-03-22] MEDS ORDERED: predniSONE 20 MG TABLET PO SCH (09:00)
[2018-03-22] MEDS: MAGNESIUM CHLORIDE 64 MG TABLET PO SCH (09:51)
[2018-03-22] MEDS: POTASSIUM CHLORIDE 20 MEQ/15 ML UDCUP PO SCH (09:51)
[2018-03-22] MEDS: metroNIDAZOLE 500 MG TABLET PO SCH (09:52)
[2018-03-22] MEDS: GABAPENTIN 300 MG CAPSULE PO SCH (09:52)
[2018-03-22] MEDS: buPROPion SR 100 MG TABLET PO SCH (09:52)
[2018-03-22] MEDS: CIPROFLOXACIN 500 MG TABLET PO SCH (09:52)
[2018-03-22] MEDS: MULTIVITAMIN (CENTRUM) TABLET PO SCH (09:52)
[2018-03-22 11:52] VITALS: BP 160/84
[2018-03-22 13:31] LABS: Myeloperoxidase Antibody < 0.2 U
[2018-03-22 20:17] LABS: Saccharomyces cerevisiae IgA 66.3 U
[2018-03-22 20:35] LABS: Saccharomyces cerevisiae, IgG 25.3 U
== END 2018-03-22 11:45 | disposition home or self-care (01) | DRG 386 ==
LOC: N.ED 16:13 → N.EDINP 16:13 → SUATTDRO 20:07 → N.2E 21:04 → SUATTDRO 03-18 15:07
PROVIDERS: ADMIT Internal Medicine; ATTEND Internal Medicine

== ENCOUNTER 2018-08-02 15:29 | Inpatient (IN) ==
[2018-08-02] MEDS ORDERED: PANTOPRAZOLE 40 MG VIAL IV STA (19:50)
[2018-08-02] MEDS ORDERED: SODIUM CHLORIDE 0.9% 1,000 ML IV STA (19:50)
[2018-08-02] MEDS ORDERED: ONDANSETRON 4 MG/2 ML VIAL IV STA (19:50)
[2018-08-02] MEDS ORDERED: methylPREDNISolone SOD SUC 125 MG/2 ML VIAL IV STA (19:50)
[2018-08-02] MEDS ORDERED: metroNIDAZOLE INJ 500 MG in PREMIX 1 EACH IV STA (19:50)
[2018-08-02] MEDS ORDERED: DICYCLOMINE 20 MG/2 ML AMP IM ONE (19:50)
[2018-08-02] MEDS ORDERED: fentaNYL 100 MCG/2 ML VIAL IV STA (19:54)
[2018-08-02 21:30] LABS: Basophils # 0.1 10*3/uL (0.0-0.2); Basophils % 0.8 % (0.0-0.8); Eosinophils # 0.3 10*3/uL (0.0-0.87); Eosinophils % 3.1 % (0.00-10.9); Hematocrit 34.5 VOL% (35.7-47.0); Hemoglobin 10.9 GM/DL (12.0-16.0); Immature Granulocytes Absolute 0.09 #; Lymphocytes # 2.7 10*3/uL (1.4-4.0); Lymphocytes % 29.8 % (21.3-54.2); Mean Corpuscular HGB Conc 31.6 GM/DL (32-36); Mean Corpuscular Volume 79.1 FL (87-102); Mean Platelet Volume 10.6 FL (9.6-12.0); Monocytes % 7.2 % (1.7-12.7); Neutrophils % 58.1 % (38.7-73.9); Platelet Count 253 T/CUMM (130-400); Red Blood Count 4.36 MC/CUMM (3.8-5.5); Red Cell Distribution Width 14.7 % (9.3-17.3); White Blood Count 9.2 T/CUMM (4-12)
[2018-08-02 21:44] LABS: INR 0.9; PT Patient Result 10.1 SECS; Partial Thromboplastin Time 23.8 SECS (0-40)
[2018-08-02 21:56] LABS: Alanine Aminotransferase 42 U/L (13-56); Albumin 3.6 G/DL (3.4-5.0); Alkaline Phosphatase 84 U/L (45-117); Amylase 74 U/L (25-115); Aspartate Amino Transferase 41 U/L (0-37); Blood Urea Nitrogen 24 MG/DL (7-18); CKMB % 3.9 %; Calcium 9.1 MG/DL (8.5-10.1); Glucose 145 MG/DL (74-106); Osmolality,Calculated 281.7 MOS/KG (273-304); Total Protein 7.3 G/DL (6.4-8.3); Troponin I < 0.015 NG/ML (0.00-0.045)
[2018-08-03 01:00] LABS: Risk Ratio 7.65; VLDL CHOLESTEROL 99.4 MG/DL
[2018-08-03] MEDS: MORPHINE 4 MG/1 ML VIAL IV PRN ×2 (01:49→09:11)
[2018-08-03] MEDS: ONDANSETRON 4 MG/2 ML VIAL IV PRN ×5 (01:51→22:10)
[2018-08-03] MEDS: POTASSIUM CHLORIDE RIDER 10 MEQ in PREMIX 1 EACH IV SCH ×3 (01:55→05:46)
[2018-08-03 05:22] LABS: Basophils % 0.4 % (0.0-0.8); Eosinophils % 0.2 % (0.00-10.9); Hematocrit 33.3 VOL% (35.7-47.0); Hemoglobin 10.3 GM/DL (12.0-16.0); Immature Granulocytes Absolute 0.09 #; Lymphocytes # 1.2 10*3/uL (1.4-4.0); Lymphocytes % 13.8 % (21.3-54.2); Mean Corpuscular HGB Conc 30.9 GM/DL (32-36); Mean Corpuscular Volume 81.6 FL (87-102); Mean Platelet Volume 11.9 FL (9.6-12.0); Monocytes % 1.2 % (1.7-12.7); Neutrophils % 83.4 % (38.7-73.9); Platelet Count 178 T/CUMM (130-400); Red Blood Count 4.08 MC/CUMM (3.8-5.5); Red Cell Distribution Width 14.8 % (9.3-17.3); White Blood Count 8.9 T/CUMM (4-12)
[2018-08-03] MEDS ORDERED: POTASSIUM CHLORIDE RIDER 10 MEQ in PREMIX 1 EACH IV SCH (06:00)
[2018-08-03 06:15] LABS: Alanine Aminotransferase 36 U/L (13-56); Albumin 3.1 G/DL (3.4-5.0); Alkaline Phosphatase 76 U/L (45-117); Aspartate Amino Transferase 43 U/L (0-37); Bilirubin,Total < 0.39 MG/DL (0.2-1.0); Blood Urea Nitrogen 24 MG/DL (7-18); Calcium 7.6 MG/DL (8.5-10.1); Glucose 264 MG/DL (74-106); Total Protein 6.4 G/DL (6.4-8.3)
[2018-08-03 06:31] LABS: Anisocytosis 1+; Lymphocytes 16 % (20-55); Platelet Estimate Adequate; Segmented Neutrophils 84 % (50-85); Total Cells Counted 100
[2018-08-03] MEDS: CIPROFLOXACIN INJ 400 MG in PREMIX 1 EACH IV SCH ×2 (07:54→20:16)
[2018-08-03] MEDS: metroNIDAZOLE INJ 500 MG in PREMIX 1 EACH IV SCH ×2 (09:10→16:50)
[2018-08-03] MEDS: GABAPENTIN 300 MG CAPSULE PO SCH ×3 (09:12→20:25)
[2018-08-03] MEDS: buPROPion SR 100 MG TABLET PO SCH (09:12)
[2018-08-03] MEDS: hydroCHLOROthiazide 25 MG TABLET PO SCH (09:12)
[2018-08-03] MEDS: PANTOPRAZOLE 40 MG TABLET PO SCH (09:12)
[2018-08-03] MEDS: predniSONE 20 MG TABLET PO SCH (09:12)
[2018-08-03] MEDS: HYDROmorphone 2 MG/1 ML VIAL IV PRN ×3 (14:29→22:07)
[2018-08-03] MEDS: traZODone 50 MG TABLET PO SCH ×2 (20:21→20:24)
[2018-08-03] MEDS: ESCITALOPRAM 10 MG TABLET PO SCH (20:21)
[2018-08-04] MEDS: metroNIDAZOLE INJ 500 MG in PREMIX 1 EACH IV SCH (00:20)
[2018-08-04] MEDS: HYDROmorphone 2 MG/1 ML VIAL IV PRN ×6 (02:18→22:50)
[2018-08-04] MEDS: ONDANSETRON 4 MG/2 ML VIAL IV PRN ×6 (03:22→22:52)
[2018-08-04 05:34] LABS: Basophils % 0.3 % (0.0-0.8); Eosinophils # 0.1 10*3/uL (0.0-0.87); Eosinophils % 0.4 % (0.00-10.9); Hematocrit 31.3 VOL% (35.7-47.0); Hemoglobin 9.7 GM/DL (12.0-16.0); Immature Granulocytes % 1.8 %; Immature Granulocytes Absolute 0.22 #; Lymphocytes # 2.3 10*3/uL (1.4-4.0); Lymphocytes % 18.7 % (21.3-54.2); Mean Corpuscular Volume 81.3 FL (87-102); Mean Platelet Volume 10.6 FL (9.6-12.0); Neutrophils % 72.8 % (38.7-73.9); Platelet Count 237 T/CUMM (130-400); Red Blood Count 3.85 MC/CUMM (3.8-5.5); Red Cell Distribution Width 15.3 % (9.3-17.3); White Blood Count 12.4 T/CUMM (4-12)
[2018-08-04] MEDS: CIPROFLOXACIN 500 MG TABLET PO SCH ×2 (08:49→21:14)
[2018-08-04] MEDS: predniSONE 20 MG TABLET PO SCH (08:49)
[2018-08-04] MEDS: PANTOPRAZOLE 40 MG TABLET PO SCH (08:49)
[2018-08-04] MEDS: hydroCHLOROthiazide 25 MG TABLET PO SCH (08:49)
[2018-08-04] MEDS: GABAPENTIN 300 MG CAPSULE PO SCH ×3 (08:49→21:12)
[2018-08-04] MEDS: buPROPion SR 100 MG TABLET PO SCH (08:49)
[2018-08-04] MEDS: metroNIDAZOLE 500 MG TABLET PO SCH ×2 (14:40→21:11)
[2018-08-04] MEDS: traZODone 50 MG TABLET PO SCH (21:11)
[2018-08-04] MEDS: ESCITALOPRAM 10 MG TABLET PO SCH (21:12)
[2018-08-05] MEDS: HYDROmorphone 2 MG/1 ML VIAL IV PRN ×2 (03:47→07:33)
[2018-08-05] MEDS: ONDANSETRON 4 MG/2 ML VIAL IV PRN ×2 (03:50→07:36)
[2018-08-05] MEDS: metroNIDAZOLE 500 MG TABLET PO SCH (06:10)
[2018-08-05] MEDS: predniSONE 20 MG TABLET PO SCH (08:04)
[2018-08-05] MEDS: buPROPion SR 100 MG TABLET PO SCH (08:04)
[2018-08-05] MEDS: GABAPENTIN 300 MG CAPSULE PO SCH (08:04)
[2018-08-05] MEDS: hydroCHLOROthiazide 25 MG TABLET PO SCH (08:04)
[2018-08-05] MEDS: CIPROFLOXACIN 500 MG TABLET PO SCH (08:04)
[2018-08-05] MEDS: PANTOPRAZOLE 40 MG TABLET PO SCH (08:04)
[2018-08-05] MEDS ORDERED: ONDANSETRON 4 MG TABLET PO PRN (09:58)
[2018-08-05] MEDS ORDERED: traMADol 50 MG TABLET PO PRN (10:00)
[2018-08-05 11:12] VITALS: BP 129/73
== END 2018-08-05 12:47 | disposition home or self-care (01) | DRG 386 ==
LOC: N.ED 15:29 → N.EDINP 08-03 00:04 → N.5E 08-03 00:58
PROVIDERS: ADMIT Hospitalist; ATTEND Hospitalist

== ENCOUNTER 2018-08-15 15:52 | Inpatient (IN) ==
[2018-08-15] MEDS ORDERED: SODIUM CHLORIDE 0.9% 1,000 ML IV STA ×2 (18:41→22:59)
[2018-08-15] MEDS ORDERED: ONDANSETRON 4 MG/2 ML VIAL IV STA (18:41)
[2018-08-15 19:51] LABS: Basophils # 0.1 10*3/uL (0.0-0.2); Basophils % 0.3 % (0.0-0.8); Eosinophils % 0.2 % (0.00-10.9); Hematocrit 43.3 VOL% (35.7-47.0); Hemoglobin 13.7 GM/DL (12.0-16.0); Immature Granulocytes % 1.2 %; Immature Granulocytes Absolute 0.23 #; Lymphocytes # 3.4 10*3/uL (1.4-4.0); Lymphocytes % 18.3 % (21.3-54.2); Mean Corpuscular HGB Conc 31.6 GM/DL (32-36); Mean Corpuscular Volume 81.2 FL (87-102); Mean Platelet Volume 11.7 FL (9.6-12.0); Monocytes % 4.6 % (1.7-12.7); Neutrophils % 75.4 % (38.7-73.9); Platelet Count 284 T/CUMM (130-400); Red Blood Count 5.33 MC/CUMM (3.8-5.5); Red Cell Distribution Width 16.2 % (9.3-17.3); White Blood Count 18.6 T/CUMM (4-12)
[2018-08-15 19:57] LABS: Apearance,Urine CLEAR (Clear); Bilirubin,Urine Negative (Negative); Blood, Urine Small mg/dL (Negative); Glucose,Urine (UA) >=500 mg/dL (Negative); Ketones,Urine Negative (Negative); Mucus,Urine Occasional /LPF (Occasional); Nitrite,Urine Negative (Negative); Protein,Urine 100 MG/DL; RBC,Urine 2 /HPF (0-4); Squamous Epithelial Cell,Urine Occasional /HPF (0-10); Urine Color Straw (Yellow); Urine Specific Gravity 1.028 (1.001-1.035); Urine Urobilinogen < 2.0 EU/DL (0.2-1.0); WBC,Urine 2 /HPF (0-6)
[2018-08-15] MEDS ORDERED: MORPHINE 4 MG/1 ML VIAL IV STA (20:22)
[2018-08-15 20:23] LABS: RBC Wet Mount None Seen /HPF; WBC Wet Mount None Seen /HPF
[2018-08-15 20:24] LABS: Bacteria Wet Mount Rare /HPF; Clue Cells None Seen /HPF (None Seen); Epithelial Cell Wet Mount None Seen /HPF (Few/HPF); Trichomonas Wet Mount None Seen /HPF (None Seen); Yeast Wet Mount None Seen /HPF (None Seen)
[2018-08-15 20:25] LABS: Albumin 3.9 G/DL (3.4-5.0); Bilirubin,Total 1.3 MG/DL (0.2-1.0); Calcium 9.6 MG/DL (8.5-10.1); Osmolality,Calculated 292.5 MOS/KG (273-304); Total Protein 7.8 G/DL (6.4-8.3)
[2018-08-15] MEDS ORDERED: methylPREDNISolone SOD SUC 125 MG/2 ML VIAL IV STA (21:01)
[2018-08-15] MEDS ORDERED: diphenhydrAMINE 50 MG/1 ML VIAL IV STA (21:01)
[2018-08-15] MEDS ORDERED: FAMOTIDINE 20 MG/2 ML VIAL IV STA (21:01)
[2018-08-15] MEDS ORDERED: INSULIN REGULAR 100 UNIT/ML IV STA (22:59)
[2018-08-15] MEDS ORDERED: hydrALAZINE 20 MG/1 ML VIAL IV STA (22:59)
[2018-08-16] MEDS ORDERED: GLUCAGON 1 MG VIAL IM PRN (01:30)
[2018-08-16] MEDS ORDERED: DEXTROSE 50% 25 GM/50 ML SYRINGE IV PRN (01:30)
[2018-08-16] MEDS ORDERED: ONDANSETRON 4 MG/2 ML VIAL IV PRN (01:36)
[2018-08-16] MEDS ORDERED: ACETAMINOPHEN 325 MG TABLET PO PRN ×2 (01:36→15:25)
[2018-08-16] MEDS ORDERED: NICOTINE 21 MG/24 HR PATCH TRANSDERM PRN (01:36)
[2018-08-16] MEDS ORDERED: diphenhydrAMINE CAP 25 MG CAPSULE PO PRN (01:36)
[2018-08-16] MEDS ORDERED: SODIUM CHLORIDE 0.9% 1,000 ML IV SCH (02:00)
[2018-08-16] MEDS ORDERED: MORPHINE 4 MG/1 ML VIAL IV PRN (03:13)
[2018-08-16] MEDS: ONDANSETRON 4 MG/2 ML VIAL IV PRN ×3 (03:31→17:20)
[2018-08-16] MEDS: SODIUM CHLORIDE 0.9% 1,000 ML IV SCH ×3 (03:32→20:53)
[2018-08-16] MEDS: MORPHINE 4 MG/1 ML VIAL IV PRN ×3 (03:32→12:40)
[2018-08-16 04:33] LABS: Basophils % 0.2 % (0.0-0.8); Hematocrit 38.9 VOL% (35.7-47.0); Hemoglobin 12.2 GM/DL (12.0-16.0); Immature Granulocytes % 1.6 %; Immature Granulocytes Absolute 0.23 #; Lymphocytes # 1.4 10*3/uL (1.4-4.0); Lymphocytes % 9.9 % (21.3-54.2); Mean Corpuscular HGB Conc 31.4 GM/DL (32-36); Mean Platelet Volume 11.6 FL (9.6-12.0); Monocytes % 0.9 % (1.7-12.7); Neutrophils % 87.4 % (38.7-73.9); Platelet Count 256 T/CUMM (130-400); Red Cell Distribution Width 16.2 % (9.3-17.3); White Blood Count 14.3 T/CUMM (4-12)
[2018-08-16 05:07] LABS: Albumin 3.5 G/DL (3.4-5.0); Bilirubin,Total 1.3 MG/DL (0.2-1.0); Calcium 8.4 MG/DL (8.5-10.1); Osmolality,Calculated 292.7 MOS/KG (273-304); Total Protein 6.9 G/DL (6.4-8.3)
[2018-08-16] MEDS ORDERED: INSULIN LISPRO 100 UNIT/ML SUBCUT SCH (08:00)
[2018-08-16] MEDS: methylPREDNISolone SOD SUC 40 MG/1 ML VIAL IV SCH ×2 (08:42→21:01)
[2018-08-16] MEDS: GABAPENTIN 300 MG CAPSULE PO SCH ×3 (08:42→20:54)
[2018-08-16] MEDS: hydroCHLOROthiazide 25 MG TABLET PO SCH (08:42)
[2018-08-16] MEDS: buPROPion SR 100 MG TABLET PO SCH (08:42)
[2018-08-16] MEDS: PANTOPRAZOLE 40 MG TABLET PO SCH (15:35)
[2018-08-16] MEDS: FLUCONAZOLE 200 MG TABLET PO SCH (17:20)
[2018-08-16] MEDS: INSULIN NPH 100 UNIT/ML SUBCUT SCH (17:20)
[2018-08-16 22:42] LABS: Calcium 8.1 MG/DL (8.5-10.1)
[2018-08-16] MEDS: INSULIN LISPRO 100 UNIT/ML SUBCUT SCH (22:43)
[2018-08-17] MEDS: SODIUM CHLORIDE 0.9% 1,000 ML IV SCH ×3 (04:31→20:34)
[2018-08-17 05:37] LABS: Basophils % 0.1 % (0.0-0.8); Hemoglobin 11.5 GM/DL (12.0-16.0); Immature Granulocytes % 1.3 %; Immature Granulocytes Absolute 0.22 #; Lymphocytes # 1.5 10*3/uL (1.4-4.0); Lymphocytes % 8.5 % (21.3-54.2); Mean Corpuscular HGB Conc 30.3 GM/DL (32-36); Mean Corpuscular Volume 83.7 FL (87-102); Mean Platelet Volume 11.1 FL (9.6-12.0); Monocytes % 2.1 % (1.7-12.7); Platelet Count 221 T/CUMM (130-400); Red Blood Count 4.54 MC/CUMM (3.8-5.5); Red Cell Distribution Width 16.7 % (9.3-17.3); White Blood Count 17.1 T/CUMM (4-12)
[2018-08-17 06:01] LABS: Calcium 8.5 MG/DL (8.5-10.1); Osmolality,Calculated 286.1 MOS/KG (273-304)
[2018-08-17] MEDS: INSULIN NPH 100 UNIT/ML SUBCUT SCH ×2 (08:51→17:07)
[2018-08-17] MEDS: buPROPion SR 100 MG TABLET PO SCH (08:52)
[2018-08-17] MEDS: GABAPENTIN 300 MG CAPSULE PO SCH ×3 (08:52→20:46)
[2018-08-17] MEDS: PANTOPRAZOLE 40 MG TABLET PO SCH (08:52)
[2018-08-17] MEDS: predniSONE 10 MG TABLET PO SCH (08:52)
[2018-08-17] MEDS: FLUCONAZOLE 200 MG TABLET PO SCH (08:52)
[2018-08-17] MEDS: hydroCHLOROthiazide 25 MG TABLET PO SCH (08:52)
[2018-08-17] MEDS: INSULIN LISPRO 100 UNIT/ML SUBCUT SCH ×4 (12:31→20:46)
[2018-08-17] MEDS: ONDANSETRON 4 MG/2 ML VIAL IV PRN ×2 (12:38→20:47)
[2018-08-18 04:36] LABS: Basophils % 0.2 % (0.0-0.8); Eosinophils % 0.2 % (0.00-10.9); Hematocrit 36.4 VOL% (35.7-47.0); Immature Granulocytes % 1.4 %; Immature Granulocytes Absolute 0.23 #; Lymphocytes # 2.8 10*3/uL (1.4-4.0); Lymphocytes % 16.8 % (21.3-54.2); Mean Corpuscular HGB Conc 30.2 GM/DL (32-36); Mean Corpuscular Volume 84.3 FL (87-102); Mean Platelet Volume 11.7 FL (9.6-12.0); Monocytes % 4.1 % (1.7-12.7); Neutrophils % 77.3 % (38.7-73.9); Platelet Count 200 T/CUMM (130-400); Red Blood Count 4.32 MC/CUMM (3.8-5.5); Red Cell Distribution Width 16.9 % (9.3-17.3); White Blood Count 16.5 T/CUMM (4-12)
[2018-08-18] MEDS: SODIUM CHLORIDE 0.9% 1,000 ML IV SCH (04:56)
[2018-08-18] MEDS: INSULIN LISPRO 100 UNIT/ML SUBCUT SCH ×2 (09:51→13:12)
[2018-08-18] MEDS: INSULIN NPH 100 UNIT/ML SUBCUT SCH (09:51)
[2018-08-18] MEDS: predniSONE 10 MG TABLET PO SCH (11:24)
[2018-08-18] MEDS: FLUCONAZOLE 200 MG TABLET PO SCH (11:24)
[2018-08-18] MEDS: GABAPENTIN 300 MG CAPSULE PO SCH (11:25)
[2018-08-18] MEDS: buPROPion SR 100 MG TABLET PO SCH (11:25)
[2018-08-18] MEDS: hydroCHLOROthiazide 25 MG TABLET PO SCH (11:25)
[2018-08-18] MEDS: PANTOPRAZOLE 40 MG TABLET PO SCH (11:25)
[2018-08-18 11:38] VITALS: BP 142/85
== END 2018-08-18 11:45 | disposition home or self-care (01) | DRG 638 ==
LOC: N.ED 15:52 → N.EDINP 08-16 01:31 → N.2E 08-16 02:01
PROVIDERS: ADMIT Hospitalist; ATTEND Hospitalist

== ENCOUNTER 2018-12-16 16:18 | Inpatient (IN) ==
[2018-12-16] MEDS ORDERED: ONDANSETRON 4 MG/2 ML VIAL IV STA (17:49)
[2018-12-16] MEDS ORDERED: SODIUM CHLORIDE 0.9% 1,000 ML IV STA (17:49)
[2018-12-16] MEDS ORDERED: METOCLOPRAMIDE 10 MG/2 ML VIAL IV STA (17:49)
[2018-12-16] MEDS ORDERED: PANTOPRAZOLE 40 MG VIAL IV STA (17:49)
[2018-12-16] MEDS ORDERED: KETOROLAC 30 MG/1 ML VIAL IV STA (17:49)
[2018-12-16 18:37] LABS: Basophils # 0.1 10*3/uL (0.0-0.2); Basophils % 0.6 % (0.0-0.8); Eosinophils # 0.4 10*3/uL (0.0-0.87); Eosinophils % 4.7 % (0.00-10.9); Hematocrit 36.8 VOL% (35.7-47.0); Hemoglobin 11.8 GM/DL (12.0-16.0); Immature Granulocytes % 0.4 %; Immature Granulocytes Absolute 0.03 #; Lymphocytes # 2.8 10*3/uL (1.4-4.0); Lymphocytes % 33.5 % (21.3-54.2); Mean Corpuscular HGB Conc 32.1 GM/DL (32-36); Mean Corpuscular Volume 80.3 FL (87-102); Mean Platelet Volume 10.6 FL (9.6-12.0); Monocytes % 7.3 % (1.7-12.7); Neutrophils % 53.5 % (38.7-73.9); Platelet Count 214 T/CUMM (130-400); Red Blood Count 4.58 MC/CUMM (3.8-5.5); Red Cell Distribution Width 13.6 % (9.3-17.3); White Blood Count 8.3 T/CUMM (4-12)
[2018-12-16 18:42] LABS: Apearance,Urine CLEAR (Clear); Bilirubin,Urine Negative (Negative); Blood, Urine Negative (Negative); Glucose,Urine (UA) Negative (Negative); Hyaline Casts,Urine 1 /LPF (0-3); Ketones,Urine Negative (Negative); Mucus,Urine Occasional /LPF (Occasional); Nitrite,Urine Negative (Negative); Protein,Urine Negative; RBC,Urine <1 /HPF (0-4); Squamous Epithelial Cell,Urine Occasional /HPF (0-10); Urine Color Yellow (Yellow); Urine Specific Gravity 1.017 (1.001-1.035); Urine Urobilinogen < 2.0 EU/DL (0.2-1.0); WBC,Urine 3 /HPF (0-6)
[2018-12-16 18:55] LABS: Alanine Aminotransferase 31 U/L (13-56); Alkaline Phosphatase 77 U/L (45-117); Amylase 111 U/L (25-115); Aspartate Amino Transferase 38 U/L (0-37); Bilirubin,Total < 0.39 MG/DL (0.2-1.0); Blood Urea Nitrogen 27 MG/DL (7-18); CKMB % 4.7 %; Calcium 9.3 MG/DL (8.5-10.1); Glucose 75 MG/DL (74-106); Osmolality,Calculated 282.4 MOS/KG (273-304); Total Protein 7.5 G/DL (6.4-8.3); Troponin I < 0.015 NG/ML (0.00-0.045)
[2018-12-16] MEDS ORDERED: DICYCLOMINE 20 MG/2 ML AMP IM ONE (19:04)
[2018-12-16] MEDS ORDERED: metroNIDAZOLE INJ 500 MG in PREMIX 1 EACH IV STA (19:04)
[2018-12-16] MEDS ORDERED: methylPREDNISolone SOD SUC 125 MG/2 ML VIAL IV STA (19:04)
[2018-12-16] MEDS: LEVOFLOXACIN INJ 750 MG in PREMIX 1 EACH IV STA ×2 (19:31→21:03)
[2018-12-16] MEDS ORDERED: ONDANSETRON 4 MG/2 ML VIAL IV PRN (20:20)
[2018-12-16] MEDS ORDERED: ACETAMINOPHEN 325 MG TABLET PO PRN (20:20)
[2018-12-16] MEDS: buPROPion SR 100 MG TABLET PO SCH (22:29)
[2018-12-16] MEDS: metFORMIN 500 MG TABLET PO SCH (22:29)
[2018-12-16] MEDS: ESCITALOPRAM 10 MG TABLET PO SCH (22:29)
[2018-12-16] MEDS: HydrOXYzine PAMOATE 25 MG CAPSULE PO SCH (22:29)
[2018-12-16] MEDS: DEXTROSE 5% NACL 0.9% 1,000 ML IV SCH (22:30)
[2018-12-16] MEDS: traZODone 50 MG TABLET PO SCH (22:30)
[2018-12-16] MEDS: MULTIVITAMIN (CENTRUM) TABLET PO SCH (22:30)
[2018-12-16] MEDS: GABAPENTIN 300 MG CAPSULE PO SCH (22:30)
[2018-12-16] MEDS: INSULIN NPH 100 UNIT/ML SUBCUT SCH (22:36)
[2018-12-17] MEDS: DEXTROSE 5% NACL 0.9% 1,000 ML IV SCH ×2 (03:49→13:58)
[2018-12-17 05:46] LABS: Basophils % 0.1 % (0.0-0.8); Eosinophils % 0.1 % (0.00-10.9); Hematocrit 36.8 VOL% (35.7-47.0); Hemoglobin 11.6 GM/DL (12.0-16.0); Immature Granulocytes % 0.4 %; Immature Granulocytes Absolute 0.03 #; Lymphocytes # 0.7 10*3/uL (1.4-4.0); Lymphocytes % 9.3 % (21.3-54.2); Mean Corpuscular HGB Conc 31.5 GM/DL (32-36); Mean Corpuscular Volume 81.2 FL (87-102); Mean Platelet Volume 10.6 FL (9.6-12.0); Monocytes % 0.8 % (1.7-12.7); Neutrophils % 89.3 % (38.7-73.9); Platelet Count 191 T/CUMM (130-400); Red Blood Count 4.53 MC/CUMM (3.8-5.5); Red Cell Distribution Width 13.6 % (9.3-17.3); White Blood Count 7.6 T/CUMM (4-12)
[2018-12-17 06:15] LABS: Alanine Aminotransferase 31 U/L (13-56); Albumin 3.7 G/DL (3.4-5.0); Alkaline Phosphatase 75 U/L (45-117); Aspartate Amino Transferase 31 U/L (0-37); Bilirubin,Total < 0.39 MG/DL (0.2-1.0); Blood Urea Nitrogen 31 MG/DL (7-18); Calcium 8.8 MG/DL (8.5-10.1); Glucose 224 MG/DL (74-106); Osmolality,Calculated 294.3 MOS/KG (273-304); Total Protein 7.1 G/DL (6.4-8.3)
[2018-12-17] MEDS: MULTIVITAMIN (CENTRUM) TABLET PO SCH ×2 (08:50→21:08)
[2018-12-17] MEDS: metFORMIN 500 MG TABLET PO SCH ×2 (08:51→17:47)
[2018-12-17] MEDS: GABAPENTIN 300 MG CAPSULE PO SCH ×3 (08:51→21:09)
[2018-12-17] MEDS: HydrOXYzine PAMOATE 25 MG CAPSULE PO SCH ×3 (08:51→21:09)
[2018-12-17] MEDS: PANTOPRAZOLE 40 MG TABLET PO SCH (08:52)
[2018-12-17] MEDS: INSULIN NPH 100 UNIT/ML SUBCUT SCH ×2 (08:53→17:47)
[2018-12-17] MEDS: metroNIDAZOLE INJ 500 MG in PREMIX 1 EACH IV SCH ×2 (08:54→17:47)
[2018-12-17] MEDS: cefTRIAXone 1,000 MG in SYRINGE 1 EACH IV SCH (11:25)
[2018-12-17] MEDS: tiZANidine 4 MG TABLET PO PRN ×2 (12:25→17:51)
[2018-12-17] MEDS: SODIUM CHLORIDE 0.9% 1,000 ML IV SCH (13:54)
[2018-12-17] MEDS: MAGNESIUM OXIDE 400 MG TABLET PO SCH ×2 (13:55→21:09)
[2018-12-17] MEDS: traMADol 50 MG TABLET PO PRN (13:55)
[2018-12-17] MEDS: traZODone 50 MG TABLET PO SCH (21:08)
[2018-12-17] MEDS: buPROPion SR 100 MG TABLET PO SCH (21:09)
[2018-12-17] MEDS: ESCITALOPRAM 10 MG TABLET PO SCH (21:09)
[2018-12-18] MEDS: SODIUM CHLORIDE 0.9% 1,000 ML IV SCH ×3 (00:57→18:55)
[2018-12-18] MEDS: metroNIDAZOLE INJ 500 MG in PREMIX 1 EACH IV SCH ×2 (01:00→08:57)
[2018-12-18 06:04] LABS: Calcium 8.3 MG/DL (8.5-10.1); Osmolality,Calculated 288.8 MOS/KG (273-304)
[2018-12-18] MEDS: GABAPENTIN 300 MG CAPSULE PO SCH ×3 (08:55→21:06)
[2018-12-18] MEDS: MAGNESIUM OXIDE 400 MG TABLET PO SCH ×2 (08:55→21:06)
[2018-12-18] MEDS: PANTOPRAZOLE 40 MG TABLET PO SCH (08:55)
[2018-12-18] MEDS: tiZANidine 4 MG TABLET PO PRN ×2 (08:55→16:38)
[2018-12-18] MEDS: MULTIVITAMIN (CENTRUM) TABLET PO SCH ×2 (08:55→21:06)
[2018-12-18] MEDS: metFORMIN 500 MG TABLET PO SCH ×2 (08:55→16:38)
[2018-12-18] MEDS: traMADol 50 MG TABLET PO PRN ×2 (08:55→21:06)
[2018-12-18] MEDS: cefTRIAXone 1,000 MG in SYRINGE 1 EACH IV SCH (08:56)
[2018-12-18] MEDS: INSULIN NPH 100 UNIT/ML SUBCUT SCH ×2 (09:40→16:38)
[2018-12-18] MEDS: HydrOXYzine PAMOATE 25 MG CAPSULE PO SCH ×3 (09:40→21:06)
[2018-12-18 14:14] LABS: Basophils # 0.1 10*3/uL (0.0-0.2); Basophils % 0.9 % (0.0-0.8); Eosinophils # 0.2 10*3/uL (0.0-0.87); Eosinophils % 2.3 % (0.00-10.9); Hematocrit 35.6 VOL% (35.7-47.0); Hemoglobin 11.2 GM/DL (12.0-16.0); Immature Granulocytes % 0.4 %; Immature Granulocytes Absolute 0.03 #; Lymphocytes # 2.5 10*3/uL (1.4-4.0); Mean Corpuscular HGB Conc 31.5 GM/DL (32-36); Mean Corpuscular Volume 82.8 FL (87-102); Mean Platelet Volume 11.4 FL (9.6-12.0); Monocytes % 5.7 % (1.7-12.7); Neutrophils % 54.7 % (38.7-73.9); Platelet Count 184 T/CUMM (130-400); Red Cell Distribution Width 13.9 % (9.3-17.3); White Blood Count 6.8 T/CUMM (4-12)
[2018-12-18] MEDS: metroNIDAZOLE 500 MG TABLET PO SCH ×2 (16:38→21:06)
[2018-12-18] MEDS: ESCITALOPRAM 10 MG TABLET PO SCH (21:06)
[2018-12-18] MEDS: buPROPion SR 100 MG TABLET PO SCH (21:06)
[2018-12-18] MEDS: traZODone 50 MG TABLET PO SCH (21:06)
[2018-12-19] MEDS: metroNIDAZOLE 500 MG TABLET PO SCH ×2 (07:20→14:21)
[2018-12-19] MEDS: tiZANidine 4 MG TABLET PO PRN (07:51)
[2018-12-19] MEDS: PANTOPRAZOLE 40 MG TABLET PO SCH (09:13)
[2018-12-19] MEDS: HydrOXYzine PAMOATE 25 MG CAPSULE PO SCH ×2 (09:13→14:21)
[2018-12-19] MEDS: MULTIVITAMIN (CENTRUM) TABLET PO SCH (09:13)
[2018-12-19] MEDS: GABAPENTIN 300 MG CAPSULE PO SCH ×2 (09:14→14:21)
[2018-12-19] MEDS: MAGNESIUM OXIDE 400 MG TABLET PO SCH (09:14)
[2018-12-19] MEDS: metFORMIN 500 MG TABLET PO SCH (09:14)
[2018-12-19] MEDS: INSULIN NPH 100 UNIT/ML SUBCUT SCH (09:14)
[2018-12-19] MEDS: traMADol 50 MG TABLET PO PRN (12:18)
[2018-12-19 15:48] VITALS: BP 122/69
== END 2018-12-19 16:40 | disposition home or self-care (01) | DRG 386 ==
LOC: N.EDINP 16:18 → N.ED 16:18 → N.5E 21:04
PROVIDERS: ADMIT Internal Medicine; ATTEND Internal Medicine

== ENCOUNTER 2019-08-06 18:59 | Observation (INO) ==
[2019-08-06 20:01] LABS: Basophils # 0.1 10*3/uL (0.0-0.2); Basophils % 0.3 % (0.0-0.8); Eosinophils # 0.1 10*3/uL (0.0-0.87); Eosinophils % 0.4 % (0.00-10.9); Hematocrit 42.9 VOL% (35.7-47.0); Hemoglobin 13.7 GM/DL (12.0-16.0); Immature Granulocytes % 0.5 %; Immature Granulocytes Absolute 0.09 #; Lymphocytes # 2.7 10*3/uL (1.4-4.0); Lymphocytes % 14.3 % (21.3-54.2); Mean Corpuscular HGB Conc 31.9 GM/DL (32-36); Mean Corpuscular Volume 77.3 FL (87-102); Mean Platelet Volume 10.2 FL (9.6-12.0); Monocytes % 5.6 % (1.7-12.7); Neutrophils % 78.9 % (38.7-73.9); Platelet Count 334 T/CUMM (130-400); Red Blood Count 5.55 MC/CUMM (3.8-5.5); Red Cell Distribution Width 15.6 % (9.3-17.3); White Blood Count 18.7 T/CUMM (4-12)
[2019-08-06 20:09] LABS: Apearance,Urine CLOUDY (Clear); Bacteria,Urine Many /HPF (Few); Bilirubin,Urine Negative (Negative); Blood, Urine Negative (Negative); Glucose,Urine (UA) Negative (Negative); Ketones,Urine Negative (Negative); Mucus,Urine Many /LPF (Occasional); Nitrite,Urine Negative (Negative); Protein,Urine 100 MG/DL; RBC,Urine 11 /HPF (0-4); Squamous Epithelial Cell,Urine Occasional /HPF (0-10); Urine Color Amber (Yellow); Urine Specific Gravity 1.014 (1.001-1.035); Urine Urobilinogen < 2.0 EU/DL (0.2-1.0); WBC,Urine 1798 /HPF (0-6)
[2019-08-06 20:14] LABS: Calcium 9.6 MG/DL (8.5-10.1); Osmolality,Calculated 282.3 MOS/KG (273-304)
[2019-08-06 20:15] LABS: Barbiturates Screen,Urine Negative (Negative); Benzodiazepines Screen,Urine Negative (Negative); Cannabinoid Screen,Urine Negative (Negative); Opiate Screen,Urine Negative (Negative); Phencyclidine Screen,Urine Negative (Negative)
[2019-08-06] MEDS ORDERED: cefTRIAXone 1,000 MG in SODIUM CHLORIDE 0.9% 100 ML IV STA (20:16)
[2019-08-06] MEDS ORDERED: cefTRIAXone 1,000 MG VIAL IM STA (20:30)
[2019-08-06] MEDS ORDERED: ACETAMINOPHEN 325 MG TABLET PO PRN (23:05)
[2019-08-06] MEDS ORDERED: ONDANSETRON 4 MG/2 ML VIAL IV PRN (23:05)
[2019-08-06] MEDS ORDERED: GLUCAGON 1 MG VIAL IM PRN (23:05)
[2019-08-06] MEDS ORDERED: DEXTROSE 10% 250 ML BAG IV PRN (23:17)
[2019-08-07] MEDS: LORazepam 2 MG/1 ML VIAL IV PRN ×5 (00:52→22:01)
[2019-08-07] MEDS ORDERED: POTASSIUM CHLORIDE INJ 20 MEQ in SODIUM CHLORIDE 0.45% 1,000 ML IV SCH (01:00)
[2019-08-07] MEDS: INSULIN REGULAR 100 UNIT/ML SUBCUT SCH ×4 (08:04→22:17)
[2019-08-07 08:09] LABS: Basophils # 0.1 10*3/uL (0.0-0.2); Basophils % 0.6 % (0.0-0.8); Eosinophils # 0.3 10*3/uL (0.0-0.87); Eosinophils % 2.7 % (0.00-10.9); Hematocrit 41.7 VOL% (35.7-47.0); Hemoglobin 13.1 GM/DL (12.0-16.0); Immature Granulocytes % 0.4 %; Immature Granulocytes Absolute 0.05 #; Lymphocytes # 2.5 10*3/uL (1.4-4.0); Lymphocytes % 19.6 % (21.3-54.2); Mean Corpuscular HGB Conc 31.4 GM/DL (32-36); Mean Corpuscular Volume 78.2 FL (87-102); Mean Platelet Volume 10.1 FL (9.6-12.0); Neutrophils % 70.7 % (38.7-73.9); Platelet Count 311 T/CUMM (130-400); Red Blood Count 5.33 MC/CUMM (3.8-5.5); Red Cell Distribution Width 15.9 % (9.3-17.3); White Blood Count 12.7 T/CUMM (4-12)
[2019-08-07 08:31] LABS: Calcium 9.1 MG/DL (8.5-10.1); Osmolality,Calculated 278.7 MOS/KG (273-304)
[2019-08-07] MEDS: GABAPENTIN 300 MG CAPSULE PO SCH ×4 (08:46→20:42)
[2019-08-07] MEDS: PANTOPRAZOLE 40 MG TABLET PO SCH (08:47)
[2019-08-07] MEDS: ENOXAPARIN 40 MG/0.4 ML SYRINGE SUBCUT SCH (08:47)
[2019-08-07] MEDS: HydrOXYzine PAMOATE 25 MG CAPSULE PO SCH ×4 (08:47→20:42)
[2019-08-07] MEDS ORDERED: SODIUM CHLOR 0.45% KCL 20 MEQ 20 MEQ/1,000 ML BAG IV SCH (11:00)
[2019-08-07] MEDS ORDERED: POTASSIUM CHLORIDE 20 MEQ TABLET PO ONE (11:55)
[2019-08-07] MEDS: CIPROFLOXACIN 500 MG TABLET PO SCH ×2 (13:31→20:42)
[2019-08-07] MEDS ORDERED: cefTRIAXone 1,000 MG in SYRINGE 1 EACH IV SCH (21:00)
[2019-08-08] MEDS: LORazepam 2 MG/1 ML VIAL IV PRN ×2 (03:44→08:12)
[2019-08-08 07:54] VITALS: BP 153/105
[2019-08-08] MEDS: HydrOXYzine PAMOATE 25 MG CAPSULE PO SCH (08:12)
[2019-08-08] MEDS: ENOXAPARIN 40 MG/0.4 ML SYRINGE SUBCUT SCH (08:12)
[2019-08-08] MEDS: CIPROFLOXACIN 500 MG TABLET PO SCH (08:12)
[2019-08-08] MEDS: GABAPENTIN 300 MG CAPSULE PO SCH (08:12)
[2019-08-08] MEDS: PANTOPRAZOLE 40 MG TABLET PO SCH (08:13)
[2019-08-08] MEDS: INSULIN REGULAR 100 UNIT/ML SUBCUT SCH (09:30)
== END 2019-08-08 12:02 ==
LOC: N.ED 18:59 → N.EDINP 18:59 → N.3E 08-07 00:03
PROVIDERS: ADMIT Family Medicine; ATTEND Family Medicine

== ENCOUNTER 2020-08-28 19:24 | Inpatient (IN) ==
[2020-08-28] MEDS ORDERED: SODIUM CHLORIDE 0.9% 1,000 ML IV STA (20:17)
[2020-08-28] MEDS ORDERED: ONDANSETRON 4 MG/2 ML VIAL IV STA (20:17)
[2020-08-28] MEDS ORDERED: MORPHINE 4 MG/1 ML VIAL IV STA (20:17)
[2020-08-28] MEDS ORDERED: methylPREDNISolone SOD SUC 125 MG/2 ML VIAL IV STA (20:21)
[2020-08-28] MEDS ORDERED: FAMOTIDINE 20 MG/2 ML VIAL IV STA (20:21)
[2020-08-28] MEDS ORDERED: diphenhydrAMINE 50 MG/1 ML VIAL IV STA (20:22)
[2020-08-28 21:01] LABS: Albumin 3.6 G/DL (3.4-5.0); Bilirubin,Total 0.4 MG/DL (0.2-1.0); Calcium 9.5 MG/DL (8.5-10.1); Osmolality,Calculated 275.4 MOS/KG (273-304); Potassium 4.7 MMOL/L (3.5-5.1); Total Protein 7.1 G/DL (6.4-8.2)
[2020-08-28 23:40] LABS: Basophils # 0.1 10*3/uL (0.0-0.2); Basophils % 0.6 % (0.0-0.8); Eosinophils # 0.2 10*3/uL (0.0-0.87); Eosinophils % 2.4 % (0.00-10.9); Hematocrit 36.5 VOL% (35.7-47.0); Hemoglobin 11.9 GM/DL (12.0-16.0); Immature Granulocytes % 0.7 %; Immature Granulocytes Absolute 0.06 #; Lymphocytes # 1.8 10*3/uL (1.4-4.0); Lymphocytes % 20.7 % (21.3-54.2); Mean Corpuscular HGB Conc 32.6 GM/DL (32-36); Mean Corpuscular Volume 77.5 FL (87-102); Mean Platelet Volume 9.7 FL (9.6-12.0); Monocytes % 4.1 % (1.7-12.7); Neutrophils % 71.5 % (38.7-73.9); Platelet Count 221 T/CUMM (130-400); Red Blood Count 4.71 MC/CUMM (3.8-5.5); Red Cell Distribution Width 13.3 % (9.3-17.3); White Blood Count 8.6 T/CUMM (4-12)
[2020-08-29 00:17] LABS: Bacteria,Urine Occasional /HPF (Few); Bilirubin,Urine Negative (Negative); Blood, Urine Negative (Negative); Glucose,Urine (UA) Negative (Negative); Ketones,Urine Negative (Negative); Nitrite,Urine Negative (Negative); Protein,Urine Negative; RBC,Urine 1 /HPF (0-4); Squamous Epithelial Cell,Urine Occasional /HPF (0-10); Urine Appearance Slightly Hazy (Clear); Urine Color Straw (Yellow); Urine Urobilinogen < 2.0 EU/DL (0.2-1.0)
[2020-08-29] MEDS ORDERED: GLUCAGON 1 MG VIAL IM PRN ×2 (00:37)
[2020-08-29] MEDS ORDERED: diphenhydrAMINE CAP 25 MG CAPSULE PO PRN (00:37)
[2020-08-29] MEDS ORDERED: hydrALAZINE 20 MG/1 ML VIAL IV PRN (00:37)
[2020-08-29] MEDS ORDERED: DEXTROSE 50% 25 GM/50 ML VIAL IV PRN ×2 (00:37)
[2020-08-29] MEDS ORDERED: ACETAMINOPHEN 325 MG TABLET PO PRN (00:37)
[2020-08-29] MEDS ORDERED: guaiFENesin/DM ER 600-30 MG TABLET PO PRN (00:37)
[2020-08-29] MEDS ORDERED: ZALEPLON 5 MG CAPSULE PO PRN (00:37)
[2020-08-29] MEDS ORDERED: NICOTINE 21 MG/24 HR PATCH TRANSDERM PRN (00:37)
[2020-08-29] MEDS ORDERED: methylPREDNISolone SOD SUC 40 MG/1 ML VIAL IV STA (00:40)
[2020-08-29] MEDS: SODIUM CHLORIDE 0.9% 1,000 ML IV SCH ×3 (02:09→23:33)
[2020-08-29] MEDS: cefTRIAXone 1,000 MG in SODIUM CHLORIDE 0.9% 100 ML IV SCH (02:09)
[2020-08-29] MEDS: MORPHINE 4 MG/1 ML VIAL IV PRN ×5 (02:13→22:01)
[2020-08-29] MEDS: metroNIDAZOLE INJ 500 MG/100 ML PREMIX IV SCH ×3 (03:10→17:44)
[2020-08-29] MEDS: ONDANSETRON 4 MG/2 ML VIAL IV PRN ×4 (06:30→22:00)
[2020-08-29 06:40] LABS: Basophils % 0.3 % (0.0-0.8); Eosinophils % 0.1 % (0.00-10.9); Hematocrit 37.8 VOL% (35.7-47.0); Hemoglobin 12.1 GM/DL (12.0-16.0); Immature Granulocytes % 0.9 %; Immature Granulocytes Absolute 0.09 #; Lymphocytes # 1.3 10*3/uL (1.4-4.0); Lymphocytes % 12.3 % (21.3-54.2); Mean Corpuscular Volume 78.6 FL (87-102); Mean Platelet Volume 10.6 FL (9.6-12.0); Neutrophils % 85.4 % (38.7-73.9); Platelet Count 243 T/CUMM (130-400); Red Blood Count 4.81 MC/CUMM (3.8-5.5); Red Cell Distribution Width 13.2 % (9.3-17.3); White Blood Count 10.5 T/CUMM (4-12)
[2020-08-29] MEDS ORDERED: traZODone 50 MG TABLET PO PRN (06:42)
[2020-08-29 07:10] LABS: Albumin 3.4 G/DL (3.4-5.0); Bilirubin,Total 0.5 MG/DL (0.2-1.0); Calcium 8.7 MG/DL (8.5-10.1); Osmolality,Calculated 281.4 MOS/KG (273-304); Total Protein 6.9 G/DL (6.4-8.2)
[2020-08-29] MEDS: PANTOPRAZOLE 40 MG TABLET PO SCH (08:53)
[2020-08-29] MEDS: GABAPENTIN 300 MG CAPSULE PO SCH ×3 (08:53→21:12)
[2020-08-29] MEDS: POLYETHYLENE GLYCOL POWDER 17 GM PACK PO SCH ×3 (08:53→21:13)
[2020-08-29] MEDS: DOCUSATE SODIUM 100 MG CAPSULE PO PRN (08:53)
[2020-08-29] MEDS: ENOXAPARIN 40 MG/0.4 ML SYRINGE SUBCUT SCH (08:54)
[2020-08-29] MEDS: INSULIN LISPRO 100 UNIT/ML SUBCUT SCH ×4 (09:02→21:20)
[2020-08-29] MEDS ORDERED: HydrOXYzine PAMOATE 25 MG CAPSULE PO PRN (19:36)
[2020-08-29] MEDS ORDERED: ESCITALOPRAM 10 MG TABLET PO SCH (21:00)
[2020-08-29] MEDS: BENZTROPINE 1 MG TABLET PO SCH (21:12)
[2020-08-29] MEDS: risperiDONE 1 MG TABLET PO SCH (21:13)
[2020-08-30] MEDS: cefTRIAXone 1,000 MG in SODIUM CHLORIDE 0.9% 100 ML IV SCH (01:29)
[2020-08-30] MEDS: metroNIDAZOLE INJ 500 MG/100 ML PREMIX IV SCH ×2 (02:04→11:38)
[2020-08-30] MEDS: ONDANSETRON 4 MG/2 ML VIAL IV PRN ×3 (02:22→11:04)
[2020-08-30] MEDS: MORPHINE 4 MG/1 ML VIAL IV PRN ×2 (02:23→06:29)
[2020-08-30 05:05] LABS: Basophils % 0.5 % (0.0-0.8); Eosinophils # 0.2 10*3/uL (0.0-0.87); Eosinophils % 2.1 % (0.00-10.9); Hematocrit 31.3 VOL% (35.7-47.0); Immature Granulocytes % 0.8 %; Immature Granulocytes Absolute 0.07 #; Lymphocytes # 2.7 10*3/uL (1.4-4.0); Lymphocytes % 30.9 % (21.3-54.2); Mean Corpuscular HGB Conc 31.9 GM/DL (32-36); Mean Corpuscular Volume 80.1 FL (87-102); Mean Platelet Volume 10.3 FL (9.6-12.0); Monocytes % 5.8 % (1.7-12.7); Neutrophils % 59.9 % (38.7-73.9); Platelet Count 198 T/CUMM (130-400); Red Blood Count 3.91 MC/CUMM (3.8-5.5); Red Cell Distribution Width 13.7 % (9.3-17.3); White Blood Count 8.9 T/CUMM (4-12)
[2020-08-30 05:19] LABS: Calcium 8.3 MG/DL (8.5-10.1); Osmolality,Calculated 282.4 MOS/KG (273-304); Potassium 4.1 MMOL/L (3.5-5.1)
[2020-08-30 06:03] LABS: Platelet Estimate Normal
[2020-08-30 06:04] LABS: Microcytosis Slight
[2020-08-30] MEDS ORDERED: IRON SUCROSE 200 MG in SODIUM CHLORIDE 0.9% 100 ML IV ONE (08:00)
[2020-08-30] MEDS: INSULIN LISPRO 100 UNIT/ML SUBCUT SCH ×2 (08:43→13:26)
[2020-08-30] MEDS: ENOXAPARIN 40 MG/0.4 ML SYRINGE SUBCUT SCH (09:32)
[2020-08-30] MEDS: POLYETHYLENE GLYCOL POWDER 17 GM PACK PO SCH (09:32)
[2020-08-30] MEDS: risperiDONE 1 MG TABLET PO SCH (09:32)
[2020-08-30] MEDS: PANTOPRAZOLE 40 MG TABLET PO SCH (09:33)
[2020-08-30] MEDS: BENZTROPINE 1 MG TABLET PO SCH (09:33)
[2020-08-30] MEDS: GABAPENTIN 300 MG CAPSULE PO SCH (09:33)
[2020-08-30] MEDS: DOCUSATE SODIUM 100 MG CAPSULE PO PRN (09:37)
[2020-08-30] MEDS: SODIUM CHLORIDE 0.9% 1,000 ML IV SCH (11:05)
[2020-08-30 12:49] VITALS: BP 121/71
== END 2020-08-30 15:32 | disposition home or self-care (01) | DRG 392 ==
LOC: N.ED 19:24 → N.EDINP 08-29 00:37 → N.4E 08-29 03:09
PROVIDERS: ADMIT Internal Medicine; ATTEND Internal Medicine

== ENCOUNTER 2020-09-04 13:32 | Inpatient (IN) ==
[2020-09-04] MEDS ORDERED: PROMETHAZINE INJ 25 MG in SODIUM CHLORIDE 0.9% 50 ML IV STA (15:56)
[2020-09-04] MEDS ORDERED: SODIUM CHLORIDE 0.9% 1,000 ML IV STA (15:56)
[2020-09-04 16:28] LABS: Bacteria,Urine Occasional /HPF (Few); Bilirubin,Urine Negative (Negative); Blood, Urine Negative (Negative); Glucose,Urine (UA) Negative (Negative); Ketones,Urine Negative (Negative); Mucus,Urine Occasional /LPF (Occasional); Nitrite,Urine Negative (Negative); Protein,Urine Negative; Squamous Epithelial Cell,Urine Occasional /HPF (0-10); Urine Appearance CLEAR (Clear); Urine Color Yellow (Yellow); Urine Specific Gravity 1.015 (1.001-1.035); Urine Urobilinogen < 2.0 EU/DL (0.2-1.0)
[2020-09-04 16:53] LABS: Barbiturates Screen,Urine Negative (Negative); Benzodiazepines Screen,Urine Negative (Negative); Cannabinoid Screen,Urine Negative (Negative); Opiate Screen,Urine Positive (Negative); Phencyclidine Screen,Urine Negative (Negative)
[2020-09-04 19:12] LABS: Basophils % 0.4 % (0.0-0.8); Eosinophils # 0.3 10*3/uL (0.0-0.87); Eosinophils % 2.8 % (0.00-10.9); Hematocrit 35.3 VOL% (35.7-47.0); Hemoglobin 11.8 GM/DL (12.0-16.0); Immature Granulocytes % 0.9 %; Immature Granulocytes Absolute 0.08 #; Lymphocytes # 3.3 10*3/uL (1.4-4.0); Lymphocytes % 34.9 % (21.3-54.2); Mean Corpuscular HGB Conc 33.4 GM/DL (32-36); Mean Corpuscular Volume 77.4 FL (87-102); Mean Platelet Volume 9.9 FL (9.6-12.0); Monocytes % 8.1 % (1.7-12.7); Neutrophils % 52.9 % (38.7-73.9); Platelet Count 246 T/CUMM (130-400); Red Blood Count 4.56 MC/CUMM (3.8-5.5); White Blood Count 9.3 T/CUMM (4-12)
[2020-09-04 19:32] LABS: Eosinophils 4 % (0-10); Hypochromasia Slight; Lymphocytes 27 % (20-55); Platelet Estimate Adequate; Polychromasia Few; Reactive Lymphocytes Few; Segmented Neutrophils 62 % (50-85); Total Cells Counted 100
[2020-09-04 19:37] LABS: Alanine Aminotransferase 21 U/L (13-56); Albumin 3.3 G/DL (3.4-5.0); Alkaline Phosphatase 77 U/L (45-117); Aspartate Amino Transferase 19 U/L (0-37); Bilirubin,Total < 0.39 MG/DL (0.2-1.0); Blood Urea Nitrogen 22 MG/DL (7-18); Calcium 8.5 MG/DL (8.5-10.1); Carbon Dioxide 29 MMOL/L (21-32); Glucose 160 MG/DL (74-106); Osmolality,Calculated 275.1 MOS/KG (273-304); Potassium 3.5 MMOL/L (3.5-5.1); Sodium 135 MMOL/L (136-145); Total Protein 6.9 G/DL (6.4-8.2)
[2020-09-04 19:38] LABS: Estimated Glom Filtration Rate 0 ML/MIN
[2020-09-04] MEDS ORDERED: methylPREDNISolone SOD SUC 125 MG/2 ML VIAL IV STA (19:48)
[2020-09-04] MEDS ORDERED: MORPHINE 4 MG/1 ML VIAL IV STA (19:59)
[2020-09-04] MEDS ORDERED: DEXTROSE 50% 25 GM/50 ML VIAL IV PRN (20:01)
[2020-09-04] MEDS ORDERED: GLUCAGON 1 MG VIAL IM PRN (20:01)
[2020-09-04] MEDS ORDERED: PROMETHAZINE 25 MG/1 ML VIAL IM PRN (20:01)
[2020-09-04] MEDS ORDERED: hydrALAZINE 20 MG/1 ML VIAL IV PRN (20:25)
[2020-09-04] MEDS ORDERED: MORPHINE 4 MG/1 ML VIAL IV PRN (20:26)
[2020-09-04] MEDS: GABAPENTIN 300 MG CAPSULE PO SCH (22:51)
[2020-09-04] MEDS: ESCITALOPRAM 10 MG TABLET PO SCH (22:52)
[2020-09-04] MEDS: BENZTROPINE 1 MG TABLET PO SCH (22:52)
[2020-09-04] MEDS: SODIUM CHLORIDE 0.9% 1,000 ML IV SCH (22:53)
[2020-09-04] MEDS: INSULIN LISPRO 100 UNIT/ML SUBCUT SCH (22:53)
[2020-09-05] MEDS: risperiDONE 1 MG TABLET PO SCH ×3 (00:38→20:15)
[2020-09-05 05:53] LABS: Basophils % 0.3 % (0.0-0.8); Eosinophils % 0.1 % (0.00-10.9); Hematocrit 38.5 VOL% (35.7-47.0); Hemoglobin 12.2 GM/DL (12.0-16.0); Immature Granulocytes % 1.1 %; Immature Granulocytes Absolute 0.11 #; Lymphocytes # 1.5 10*3/uL (1.4-4.0); Lymphocytes % 15.4 % (21.3-54.2); Mean Corpuscular HGB Conc 31.7 GM/DL (32-36); Mean Corpuscular Volume 80.2 FL (87-102); Mean Platelet Volume 10.2 FL (9.6-12.0); Monocytes % 1.3 % (1.7-12.7); Neutrophils % 81.8 % (38.7-73.9); Platelet Count 252 T/CUMM (130-400); Red Cell Distribution Width 13.8 % (9.3-17.3); White Blood Count 9.6 T/CUMM (4-12)
[2020-09-05 06:13] LABS: Calcium 8.3 MG/DL (8.5-10.1); Potassium 4.8 MMOL/L (3.5-5.1); Risk Ratio 7.29; Thyroid Stimulating Hormone 1.47 uIU/ml (0.358-3.74); VLDL CHOLESTEROL 71.6 MG/DL
[2020-09-05 06:28] LABS: Anisocytosis Slight; Band Neutrophils 5 % (0-10); Lymphocytes 14 % (20-55); Platelet Estimate Normal; Segmented Neutrophils 78 % (50-85); Total Cells Counted 100
[2020-09-05] MEDS: SODIUM CHLORIDE 0.9% 1,000 ML IV SCH ×3 (07:11→11:55)
[2020-09-05] MEDS: GABAPENTIN 300 MG CAPSULE PO SCH ×3 (09:03→20:15)
[2020-09-05] MEDS: POLYETHYLENE GLYCOL POWDER 17 GM PACK PO SCH ×2 (09:04→20:14)
[2020-09-05] MEDS: BENZTROPINE 1 MG TABLET PO SCH ×2 (09:04→20:15)
[2020-09-05] MEDS: metroNIDAZOLE INJ 500 MG/100 ML PREMIX IV SCH ×3 (09:04→23:30)
[2020-09-05] MEDS: INSULIN LISPRO 100 UNIT/ML SUBCUT SCH ×4 (09:05→21:42)
[2020-09-05] MEDS: PANTOPRAZOLE 40 MG VIAL IV SCH (09:05)
[2020-09-05] MEDS: CIPROFLOXACIN INJ 400 MG/200 ML PREMIX IV SCH (12:03)
[2020-09-05] MEDS: ENOXAPARIN 40 MG/0.4 ML SYRINGE SUBCUT SCH (12:03)
[2020-09-05] MEDS: ACETAMINOPHEN 325 MG TABLET PO PRN (15:46)
[2020-09-05] MEDS: ONDANSETRON 4 MG/2 ML VIAL IV PRN ×2 (15:47→20:15)
[2020-09-05] MEDS: ESCITALOPRAM 10 MG TABLET PO SCH (20:15)
[2020-09-05] MEDS ORDERED: ZALEPLON 5 MG CAPSULE PO PRN (20:47)
[2020-09-06] MEDS: CIPROFLOXACIN INJ 400 MG/200 ML PREMIX IV SCH ×3 (00:57→23:13)
[2020-09-06] MEDS: NICOTINE 21 MG/24 HR PATCH TRANSDERM SCH ×2 (01:02→09:20)
[2020-09-06 08:24] LABS: Basophils % 0.5 % (0.0-0.8); Eosinophils # 0.1 10*3/uL (0.0-0.87); Eosinophils % 1.4 % (0.00-10.9); Hematocrit 35.2 VOL% (35.7-47.0); Immature Granulocytes % 1.6 %; Immature Granulocytes Absolute 0.14 #; Lymphocytes # 2.4 10*3/uL (1.4-4.0); Mean Corpuscular HGB Conc 31.3 GM/DL (32-36); Mean Corpuscular Volume 81.7 FL (87-102); Mean Platelet Volume 10.3 FL (9.6-12.0); Monocytes % 6.6 % (1.7-12.7); Neutrophils % 61.9 % (38.7-73.9); Platelet Count 214 T/CUMM (130-400); Red Blood Count 4.31 MC/CUMM (3.8-5.5); Red Cell Distribution Width 14.2 % (9.3-17.3); White Blood Count 8.6 T/CUMM (4-12)
[2020-09-06 08:41] LABS: Calcium 7.9 MG/DL (8.5-10.1); Osmolality,Calculated 288.1 MOS/KG (273-304)
[2020-09-06 08:44] LABS: Eosinophils 1 % (0-10); Hypochromasia 1+; Lymphocytes 21 % (20-55); Microcytosis 1+; Segmented Neutrophils 72 % (50-85); Total Cells Counted 100
[2020-09-06 08:45] LABS: Platelet Estimate Normal
[2020-09-06] MEDS: GABAPENTIN 300 MG CAPSULE PO SCH ×3 (09:20→20:51)
[2020-09-06] MEDS: POLYETHYLENE GLYCOL POWDER 17 GM PACK PO SCH ×2 (09:20→20:52)
[2020-09-06] MEDS: PANTOPRAZOLE 40 MG VIAL IV SCH (09:21)
[2020-09-06] MEDS: risperiDONE 1 MG TABLET PO SCH ×2 (09:21→21:12)
[2020-09-06] MEDS: ONDANSETRON 4 MG/2 ML VIAL IV PRN ×3 (09:21→20:51)
[2020-09-06] MEDS: SODIUM CHLORIDE 0.9% 1,000 ML IV SCH ×3 (09:22→21:09)
[2020-09-06] MEDS: metroNIDAZOLE INJ 500 MG/100 ML PREMIX IV SCH (09:22)
[2020-09-06] MEDS: BENZTROPINE 1 MG TABLET PO SCH ×2 (09:22→20:52)
[2020-09-06] MEDS: INSULIN LISPRO 100 UNIT/ML SUBCUT SCH ×4 (12:16→20:52)
[2020-09-06] MEDS: ENOXAPARIN 40 MG/0.4 ML SYRINGE SUBCUT SCH (12:57)
[2020-09-06] MEDS: ESCITALOPRAM 10 MG TABLET PO SCH (20:52)
[2020-09-07] MEDS: ONDANSETRON 4 MG/2 ML VIAL IV PRN ×2 (03:57→09:31)
[2020-09-07] MEDS: SODIUM CHLORIDE 0.9% 1,000 ML IV SCH (05:55)
[2020-09-07 06:14] LABS: Basophils # 0.1 10*3/uL (0.0-0.2); Basophils % 0.9 % (0.0-0.8); Eosinophils # 0.2 10*3/uL (0.0-0.87); Eosinophils % 2.9 % (0.00-10.9); Hematocrit 36.6 VOL% (35.7-47.0); Hemoglobin 12.2 GM/DL (12.0-16.0); Immature Granulocytes Absolute 0.23 #; Lymphocytes # 2.2 10*3/uL (1.4-4.0); Lymphocytes % 28.5 % (21.3-54.2); Mean Corpuscular HGB Conc 33.3 GM/DL (32-36); Mean Corpuscular Volume 77.5 FL (87-102); Mean Platelet Volume 10.8 FL (9.6-12.0); Monocytes % 6.4 % (1.7-12.7); Neutrophils % 58.3 % (38.7-73.9); Platelet Count 214 T/CUMM (130-400); Red Blood Count 4.72 MC/CUMM (3.8-5.5); Red Cell Distribution Width 14.1 % (9.3-17.3); White Blood Count 7.7 T/CUMM (4-12)
[2020-09-07 06:34] LABS: Calcium 8.4 MG/DL (8.5-10.1); Osmolality,Calculated 281.5 MOS/KG (273-304); Potassium 4.2 MMOL/L (3.5-5.1)
[2020-09-07 07:59] VITALS: BP 170/83
[2020-09-07] MEDS: ACETAMINOPHEN 325 MG TABLET PO PRN (09:31)
[2020-09-07] MEDS: PANTOPRAZOLE 40 MG VIAL IV SCH (09:32)
[2020-09-07] MEDS: NICOTINE 21 MG/24 HR PATCH TRANSDERM SCH (09:32)
[2020-09-07] MEDS: risperiDONE 1 MG TABLET PO SCH (09:33)
[2020-09-07] MEDS: BENZTROPINE 1 MG TABLET PO SCH (09:33)
[2020-09-07] MEDS: POLYETHYLENE GLYCOL POWDER 17 GM PACK PO SCH (09:33)
[2020-09-07] MEDS: GABAPENTIN 300 MG CAPSULE PO SCH (09:33)
[2020-09-07] MEDS: INSULIN LISPRO 100 UNIT/ML SUBCUT SCH (09:34)
[2020-09-08] MEDS ORDERED: amLODIPine 5 MG TABLET PO SCH (09:00)
== END 2020-09-07 11:50 | disposition home health service (06) | DRG 392 ==
LOC: N.ED 13:32 → N.EDINP 20:11 → N.5E 22:02
PROVIDERS: ADMIT Internal Medicine; ATTEND Internal Medicine